=== PATIENT | male | born 1940 | race Caucasian/White ===

== ENCOUNTER 2017-03-19 15:14 | Inpatient (IN) | payer MEDICARE, OTHER ==
[~2017-03-19] VITALS: Ht 175.3 cm; Wt 74.8 kg
--- NOTE | 2017-03-19 15:14 | NUR ---
BIB RA C/O WEAKNESS AND HYPOTENSION FROM HOME. NAD NOTED. PT AAO X4, RR EVEN AND UNLABORED. VSS. PT GIVEN 500CC BOLUS IN FIELD. CURRENT PRESSURE 133/77. PLACED IN GOWN AND MONITOR. PENDING MD FOR EVAL.
--- NOTE | 2017-03-19 15:41 | NUR ---
RAY AT BEDSIDE.
[2017-03-19 15:46] LABS: BASOPHILS % (AUTO) 2.5 % (0.0-2.0); EOSINOPHILS % (AUTO) 0.9 % (0.0-6.0); HEMATOCRIT 21 % (39-51); HEMOGLOBIN 7.4 g/dL (13.5-17.5); LYMPHOCYTES # (AUTO) 0.3 /CMM (0.8-4.8); LYMPHOCYTES % (AUTO) 54.3 % (20.0-44.0); MEAN CORPUSCULAR HEMOGLOBIN 33 PG (26.0-33.0); MEAN CORPUSCULAR HGB CONC 35 g/dl (31.0-36.0); MEAN CORPUSCULAR VOLUME 94 fL (80-96); MONOCYTES % (AUTO) 8.4 % (2.0-12.0); NEUTROPHILS # (AUTO) 0.2 /CMM (1.8-8.9); NEUTROPHILS % (AUTO) 33.9 % (43.0-81.0); PLATELET COUNT (AUTO) 91 /CMM (150-450); RDW COEFFICIENT OF VARIATION 18.6 (11.5-15.0); RED BLOOD CELL COUNT(AUTO) 2.27 MIL/uL (4.5-6.0)
[2017-03-19 15:48] LABS: WHITE BLOOD COUNT (AUTO) 0.5 K/uL (4.3-11.0)
[2017-03-19 15:50] LABS: CALCIUM, SERUM 7.9 mg/dL (8.5-10.1); CARBON DIOXIDE 29 mmol/L (21-32); CHLORIDE 103 mmol/L (98-107); CREATININE 1.2 mg/dL (0.6-1.3); GLUCOSE 131 mg/dL (74-106); POTASSIUM 4.3 mmol/L (3.5-5.1); SODIUM SERUM 138 mmol/L (136-145); UREA NITROGEN, BLOOD 30 mg/dL (7-18)
[2017-03-19 15:56] LABS: ALANINE AMINOTRANSFERASE 25 U/L (12-78); ALBUMIN 2.7 g/dL (3.4-5.0); ALKALINE PHOSPHATASE 52 U/L (46-116); ASPARTATE AMINOTRANSFERASE 20 U/L (15-37); BILIRUBIN,DIRECT 0.2 mg/dL (0.0-0.2); BILIRUBIN,TOTAL 0.8 mg/dL (0.2-1.0); TOTAL PROTEIN, SERUM 5.3 g/dL (6.4-8.2)
[2017-03-19] MEDS ORDERED: IV NS 0.9% 1,000 ML BAG IV ONE (16:00)
[2017-03-19 16:03] LABS: INR 0.93 (0.87-1.13); PROTHROMBIN TIME 9.7 SECS (9.5-12.7)
--- NOTE | 2017-03-19 16:15 | NUR ---
PATIENT WILL BE ADMITTED INTO ROOM 311-2, NURSE ARITA
[2017-03-19 16:28] LABS: APPEARANCE,URINE Clear (CLEAR); BILIRUBIN,URINE Negative (NEGATIVE); BLOOD, URINE Moderate Ery/uL (NEGATIVE); COLOR,URINE Yellow (YELLOW); KETONES,URINE Negative (NEGATIVE); LEUKOCYTE ESTERASE ,URINE Negative (NEGATIVE); NITRITE, URINE Negative (NEGATIVE); PH,URINE 5.5 (5.0-8.0); PROTEIN,URINE 30 mg/dl (NEGATIVE); UGLUCOSE Negative (NEGATIVE)
[2017-03-19 16:31] LABS: BACTERIA,URINE Rare /HPF (None Seen); RBC,URINE 51-80 /HPF (0-2); SQUAMOUS EPITHELIAL CELL,UR Few /HPF (None Seen); WBC,URINE 0-2 /HPF (0-3)
--- NOTE | 2017-03-19 16:42 | NUR ---
REPORT GIVEN TO KIM GROVES FOR YVONNE
--- NOTE | 2017-03-19 17:20 | NUR ---
DYE WORKER ADMITTING NOTES RECEIVED PT VIA CINTIA.ALERT AND ORIENTED X4.VERBALLY RESPONSIVE.ON BEDREST DUE TO WEAKNESS.WITH IV H/L INTACT TO RT AC G 18.WITH GENERALIZED WEAKNESS.BODY CHECK DONE WITH SKIN TEAR ON RFA AND HEALING SCABS ON LEFT ELBOW. PATIENT ABLE TO MOVE BOTH BUE AND BLE. PATIENT HAS TREMORS ON LFT HAND AND SLIGHTLY NOTICED ON THE RIGHT HAND. PATIENT TAKEN DOWN TO CT CERVICAL SPINE AND THORACIC SPINE W/O CONTRAST.
[2017-03-19] MEDS ORDERED: ZOLPIDEM TARTRATE 5 MG TABLET PO PRN (17:30)
[2017-03-19] MEDS ORDERED: HYDROCODONE/APAP 5/325MG 1 EACH TABLET PO PRN (17:30)
[2017-03-19] MEDS ORDERED: Z GUARD REMEDY 2 OZ OINT TP PRN (17:30)
[2017-03-19] MEDS ORDERED: ACETAMINOPHEN 325 MG TABLET PO PRN (17:30)
[2017-03-19] MEDS ORDERED: MAG HYDROX/AL HYDROX/SIMETH 30 ML UDC PO PRN (17:30)
[2017-03-19] MEDS ORDERED: ONDANSETRON HCL/PF 4 MG/2 ML VIAL IVP PRN (17:30)
[2017-03-19] MEDS ORDERED: MORPHINE SULFATE INJ 2 MG/ML DISP.SYRIN IV PRN (17:30)
[2017-03-19] MEDS ORDERED: MAGNESIUM HYDROXIDE 30 ML UDC PO PRN (17:30)
[2017-03-19 18:30] VITALS: BP 120/48
--- NOTE | 2017-03-19 18:30 | NUR ---
PATIENT RETURNED FROM CT SCAN AND IS RESTING COMFORTABLY IN BED. EATING DINNER. CALL LIGHT WITHIN REACH.
--- NOTE | 2017-03-19 19:30 | NUR ---
PT'S ARRIVED AND QUESTIONED PT'S HOME MEDS WHICH IS NOT CLEAR SAYING SHE DOESN'T HAVE PT'S HOME MED LIST WHICH CAN ONLY BE OBTAINED AT [facility]PT REFUSED SINGH CATHETER INSERTION SAYING HE USES URINAL TO VOID.ENDORSED TO NIGHT NURSE CARE.
--- NOTE | 2017-03-19 19:45 | NUR ---
TELE ARCH CUSHION PRESS OPERATOR INITIAL NOTES RECEIVED PT IN BED AWAKE AND ALERT WITH HIS AT THE BEDSIDE. PT AND HIS AWARE THAT PT WILL HAVE BLOOD TRANSFUSION ORDERED. SIGNED THE CONSENT FOR THE PT. DENIES ANY PAIN OR ANY DISCOMFORT . SNACKS ALSO SERVED . TELE SR WITH [facility] HEART 102 PER MONITOR. KEPT HIM WARM AND COMFORTABLE AT ALL TIMES. WILL CONTINUE TO MONITOR. PLACE CALL LIGHT AT REACH.
[2017-03-19 20:00] VITALS: BP 90/52
[2017-03-19 20:00] LABS: FREE PSA 25.77 ng/mL (0.00-45); PROSTATE SPECIFIC ANTIGEN SCR 424.95 ng/mL (0.00-4.00)
[2017-03-19 20:30] LABS: AMYLASE 45 U/L (25-115); LIPASE 64 U/L (73-393)
[2017-03-19 20:47] LABS: CREATINE KINASE MB 0.3 ng/mL (0-3.6)
[2017-03-19] MEDS: TBO-FILGRASTIM 300 MCG/0.5 ML SYRINGE SQ SCH (20:55)
[2017-03-19 21:06] LABS: HEMOGLOBIN 6.8 g/dL (13.5-17.5)
[2017-03-19 22:20] VITALS: BP 90/60
--- NOTE | 2017-03-19 22:20 | NUR ---
DUST MILL OPERATOR/NOTES BLOOD TRANSFUSION STARTED VERIFIED BY ANOTHER NURSE . PT AWAKE AND ALERT , DENIES ANY PAIN OR ANY DISCOMFORT. KEPT HIM WARM AND COMFORTABLE AT ALL TIMES. WILL CONTINUE TO MONITOR. PLACE CALL LIGHT AT REACH.
[2017-03-19 22:35] VITALS: BP 90/50
--- NOTE | 2017-03-19 22:35 | NUR ---
MANAGER OF SELECTION AND ASSESSMENT/NOTES CHECKED PT HE'S RESTING BUT AROUSES TO TOUCH, NO SIGNS OF ANY ACUTE DISTRESS NOTED, DENIES ANY PAIN. HE STATED "I'M OK". KEPT HIM WARM AND COMFORTABLE AT ALL TIMES. PLACE CALL LIGHT AT REACH.
[2017-03-19 23:35] VITALS: BP 90/60
[2017-03-20] VITALS (7 sets, daily range): BP systolic 90–114; BP diastolic 50–61
--- NOTE | 2017-03-20 02:00 | NUR ---
STEWARD/STEWARDESS THIRD CLASS/NOTES TRANSFUSION DONE , NO SIGNS OF ANY ADVERSE REACTION NOTED. BREATHING EVEN AND NON-LABORED . SKIN WARM TO TOUCH, KEPT HIM COMFORTABLE AT ALL TIMES. PT DENIES ANY DISCOMFORT. WILL CONTINUE TO MONITOR. PLACE CALL LIGHT AT REACH.
[2017-03-20] MEDS: PANTOPRAZOLE 40 MG TABLET.DR PO SCH ×2 (06:36→09:50)
--- NOTE | 2017-03-20 07:11 | NUR ---
TELE WIND UP WORKER CLOSING NOTES PT BACK TO REST AFTER MORNING CARE DONE WITH THE HELPED OF FUR GLOSSER. RESPIRATION EVEN AND NON-LABORED, NOT IN ANY ACUTE DISTRESS NOTED. ALL DUE MEDS GIVEN AND STABLE MAHAD THE NIGHT EVEN AFTER BLOOD TRANSFUSION. TELE SINUS TACH 98 PER MONITOR . KEPT HIM WARM AND COMFORTABLE AT ALL TIMES. ENDORSE TO AM NURSE ALVAREZ FOR CONTINUITY OF CARE. PLACE CALL LIGHT AT REACH.
[2017-03-20 07:29] LABS: INR 0.92 (0.87-1.13); PROTHROMBIN TIME 9.8 SECS (9.5-12.7)
[2017-03-20 07:31] LABS: BASOPHILS % (AUTO) 1.1 % (0.0-2.0); EOSINOPHILS % (AUTO) 1.6 % (0.0-6.0); HEMATOCRIT 24 % (39-51); HEMOGLOBIN 8.2 g/dL (13.5-17.5); LYMPHOCYTES # (AUTO) 0.3 /CMM (0.8-4.8); LYMPHOCYTES % (AUTO) 43.8 % (20.0-44.0); MEAN CORPUSCULAR HEMOGLOBIN 31 PG (26.0-33.0); MEAN CORPUSCULAR HGB CONC 34 g/dl (31.0-36.0); MEAN CORPUSCULAR VOLUME 92 fL (80-96); MONOCYTES % (AUTO) 5.3 % (2.0-12.0); NEUTROPHILS # (AUTO) 0.4 /CMM (1.8-8.9); NEUTROPHILS % (AUTO) 48.2 % (43.0-81.0); PLATELET COUNT (AUTO) 90 /CMM (150-450); RDW COEFFICIENT OF VARIATION 20.6 (11.5-15.0); RED BLOOD CELL COUNT(AUTO) 2.62 MIL/uL (4.5-6.0)
[2017-03-20 07:39] LABS: WHITE BLOOD COUNT (AUTO) 0.8 K/uL (4.3-11.0)
[2017-03-20 07:51] LABS: CARBON DIOXIDE 28 mmol/L (21-32); CHLORIDE 105 mmol/L (98-107); GLUCOSE 110 mg/dL (74-106); MAGNESIUM 1.9 mg/dL (1.8-2.4); PHOSPHORUS 2.8 mg/dL (2.5-4.9); POTASSIUM 3.8 mmol/L (3.5-5.1); SODIUM SERUM 141 mmol/L (136-145); UREA NITROGEN, BLOOD 23 mg/dL (7-18)
[2017-03-20 07:56] LABS: CHOLESTEROL 131 mg/dL (<200); HDL CHOLESTEROL 32 mg/dL (40-60); LDL 80 mg/dL (0-99); THYROID STIMULATING HORMONE 1.652 uIU/mL (0.358-3.74); TRIGLYCERIDES 114 mg/dL (30-150)
--- NOTE | 2017-03-20 08:00 | NUR ---
INTENSIVE CARE UNIT REGISTERED NURSE AM NOTES; RECEIVED PATIENT STABLE. A&O X3. NO DISTRESS NOTED. NO PAIN NOTED. NO SOB NOTED. ON ROOM AIR SATING AT 94%. ATE BREAKFAST IN BED. NO N/V NOTED. ON A CARDIAC DIET. VS STABLE. RESTING COMFORTABLY IN BED. CALL LIGHT WITHIN REACH.
[2017-03-20] MEDS: DOCUSATE SODIUM 100 MG CAPSULE PO SCH ×2 (08:48→17:00)
[2017-03-20] MEDS ORDERED: IBUPROFEN 400 MG TABLET PO SCH (10:00)
[2017-03-20] MEDS ORDERED: oxyCODONE IR immediate release 5 MG CAPSULE PO PRN (10:00)
[2017-03-20] MEDS: ACETAMINOPHEN 325 MG TABLET PO SCH ×3 (10:00→21:14)
[2017-03-20] MEDS ORDERED: IBUPROFEN 400 MG TABLET PO PRN (11:25)
[2017-03-20 13:27] LABS: BASOPHILS % (AUTO) 0.6 % (0.0-2.0); EOSINOPHILS % (AUTO) 0.9 % (0.0-6.0); HEMATOCRIT 22 % (39-51); HEMOGLOBIN 7.5 g/dL (13.5-17.5); LYMPHOCYTES # (AUTO) 0.4 /CMM (0.8-4.8); LYMPHOCYTES % (AUTO) 42.6 % (20.0-44.0); MEAN CORPUSCULAR HEMOGLOBIN 32 PG (26.0-33.0); MEAN CORPUSCULAR HGB CONC 35 g/dl (31.0-36.0); MEAN CORPUSCULAR VOLUME 92 fL (80-96); MONOCYTES # (AUTO) 0.1 /CMM (0.1-1.30); MONOCYTES % (AUTO) 6.9 % (2.0-12.0); NEUTROPHILS # (AUTO) 0.5 /CMM (1.8-8.9); PLATELET COUNT (AUTO) 85 /CMM (150-450); RDW COEFFICIENT OF VARIATION 20.6 (11.5-15.0); RED BLOOD CELL COUNT(AUTO) 2.35 MIL/uL (4.5-6.0)
[2017-03-20] MEDS ORDERED: PANTOPRAZOLE 80 MG in IV NS 0.9% 100 ML IV ONE (14:00)
[2017-03-20 14:34] LABS: BAND % (MANUAL) 6 % (0.0-5.0); EOSINOPHILS % (MANUAL) 2 % (0-4); LYMPHOCYTES % (MANUAL) 50 % (16-48); MONOCYTES % (MANUAL) 10 % (0-11.0); MYELOCYTES % 1 % (0-0); NEUTROPHILS % (MANUAL) 31 (42-76)
--- NOTE | 2017-03-20 15:37 | NUR ---
PT REFUSED P.T. TREATMENT
--- NOTE | 2017-03-20 16:38 | NUR ---
1420: ADMINISTERED PROTONIX IV RUNNING AT 50ML/HR STARTED AT 1420. FORGOT TO SCAN BAG.
--- NOTE | 2017-03-20 17:40 | NUR ---
CONSTRUCTION SKILLS TEACHER CLOSING NOTES: PATIENT A&0X3. PATIENT NPO. PROTONIX NS 0.9% RUNNING AT 50ML/HR ON RIGHT ACS SITE. SITE CLEAR/ PATENT/ NO REDNESS/ NO INFILTRATION NOTED. NO DISTRESS NOTED. NO SOB NOTED. NO N/V NOTED.NO PAIN NOTED. RESTING COMFORTABLY IN BED. CALL LIGHT WITHIN REACH.
--- NOTE | 2017-03-20 19:00 | NUR ---
GUEST RELATIONS MANAGER NOTES RECEIVED PT IN BED, A/O X3, NOT IN ACUTE DISTRESS, IV SITE INTACT NO S/S OF INFILTRATION. CALL LIGHT WITHIN REACH. SAFETY MEASURES IN PLACE, ON LOW BED, WILL CONTINUE TO MONITOR PT.
[2017-03-20] MEDS: TBO-FILGRASTIM 300 MCG/0.5 ML SYRINGE SQ SCH (21:11)
[2017-03-21] VITALS (12 sets, daily range): BP systolic 90–129; BP diastolic 50–74
[2017-03-21] MEDS: PANTOPRAZOLE 80 MG in IV NS 0.9% 500 ML IV PRN ×2 (01:45→13:54)
[2017-03-21] MEDS: ACETAMINOPHEN 325 MG TABLET PO SCH ×4 (04:00→21:00)
--- NOTE | 2017-03-21 05:20 | NUR ---
PAGED VOCATIONAL NURSING INSTRUCTOR MD SPOKE TO DR. NICHOL SANCHEZ ORDERED PATIENT TO HAVE D5 NS AT 75 CC/HR IV HYDRATION NOTED AND CARRIED OUT
[2017-03-21] MEDS: IV D5/ 0.9% NACL 1,000 ML IV PRN (05:27)
--- NOTE | 2017-03-21 06:35 | NUR ---
MS RN NOTES PATIENT COMFORTABLY ASLEEP AND EASILY AWAKEN, A/O X 3, HEAD OF BED ELEVATED FOR BETTER LUNG EXPANSION. TOLERATING ROOM AIR 02 SAT 98%, IV SITE NO S/S OF INFILTRATED PATENT AND FLUSHED, NOT IN ACUTE DISTRESS. RESPIRATIONS EVEN AND UNLABORED, NURSING CARE RENDERED, NEEDS ATTENDED AND ANTICIPATED, KEPT CLEAN AND DRY AND COMFORTABLE, GOOD SKIN CARE PROVIDED. FREQUENT VISUAL CHECK DONE FOR SAFETY EVERY 2 HOURS. ASSISTED REPOSITIONED EVERY 2 HOURS FOR SKIN MGT, NO COMPLAINS OF CHEST PAIN THROUGHOUT THE 12 HOUR SHIFT. SAFE HAZARD FREE ENVIRONMENT PROVIDED. CALL LIGHT WITHIN EASY TO REACH, ON LOW BED AT ALL TIMES TO ENSURE SAFETY, WILL ENDORSE TO THE NEXT SHIFT CONTINUE PLAN OF CARE.
[2017-03-21 06:38] LABS: BASOPHILS % (AUTO) 0.3 % (0.0-2.0); EOSINOPHILS % (AUTO) 0.6 % (0.0-6.0); HEMATOCRIT 21 % (39-51); HEMOGLOBIN 7.4 g/dL (13.5-17.5); LYMPHOCYTES # (AUTO) 0.6 /CMM (0.8-4.8); LYMPHOCYTES % (AUTO) 29.8 % (20.0-44.0); MEAN CORPUSCULAR HEMOGLOBIN 32 PG (26.0-33.0); MEAN CORPUSCULAR HGB CONC 35 g/dl (31.0-36.0); MEAN CORPUSCULAR VOLUME 92 fL (80-96); MONOCYTES # (AUTO) 0.1 /CMM (0.1-1.30); NEUTROPHILS # (AUTO) 1.4 /CMM (1.8-8.9); NEUTROPHILS % (AUTO) 65.3 % (43.0-81.0); PLATELET COUNT (AUTO) 90 /CMM (150-450); RDW COEFFICIENT OF VARIATION 20.1 (11.5-15.0); RED BLOOD CELL COUNT(AUTO) 2.31 MIL/uL (4.5-6.0); WHITE BLOOD COUNT (AUTO) 2.1 K/uL (4.3-11.0)
[2017-03-21 07:52] LABS: CALCIUM, SERUM 7.7 mg/dL (8.5-10.1); CARBON DIOXIDE 27 mmol/L (21-32); CHLORIDE 103 mmol/L (98-107); CREATININE 1.2 mg/dL (0.6-1.3); GLUCOSE 93 mg/dL (74-106); MAGNESIUM 1.7 mg/dL (1.8-2.4); PHOSPHORUS 2.7 mg/dL (2.5-4.9); POTASSIUM 3.7 mmol/L (3.5-5.1); SODIUM SERUM 137 mmol/L (136-145); UREA NITROGEN, BLOOD 16 mg/dL (7-18)
--- NOTE | 2017-03-21 08:00 | NUR ---
RN AM MED SURGE NOTES: RECEIVED RESIDENT A&OX3. PT NPO. INFUSING PROTONIX NS 50CC/HR, D5 NS RUNNING AT 75ML/HR. MIDLINE SITE CLEAR. NO REDNESS. NO PAIN NOTED. NO DISTRESS. NO SOB NOTED. RESTING COMFORTABLY IN BED. CALL LIGHT WITHIN REACH.
[2017-03-21 08:18] LABS: CREATINE KINASE, TOTAL 94 U/L (39-308)
[2017-03-21 08:58] LABS: BAND % (MANUAL) 15 % (0.0-5.0); LYMPHOCYTES % (MANUAL) 22 % (16-48); MONOCYTES % (MANUAL) 6 % (0-11.0); NEUTROPHILS % (MANUAL) 57 (42-76)
[2017-03-21] MEDS: DOCUSATE SODIUM 100 MG CAPSULE PO SCH ×2 (09:00→16:07)
--- NOTE | 2017-03-21 09:45 | NUR ---
SEEN BY P.T. AND PT REFUSED FOR 2 DAYS INSPITE OF EXPLAINING IT'S RISKS AND BENEFITS.
[2017-03-21] MEDS ORDERED: Magnesium 1GM/D5W 100ML PREMIX 100 ML IV SCH (10:00)
[2017-03-21] MEDS: Magnesium 1GM/D5W 100ML PREMIX 100 ML IV SCH ×2 (10:46→12:11)
--- NOTE | 2017-03-21 13:00 | NUR ---
STARTED TRANSFUSING FIRST UNIT PRBC WITH STABLE V/S.AFEBRILE.PT IS COMFORTABLY SLEEPING BUT AROUSABLE.WILL MONITOR FOR ANY ADVERSE REACTIONS.
--- NOTE | 2017-03-21 14:05 | NUR ---
WITH ONGOING FIRST UNIT PRBC TRANSFUSING WELL WITH NO A/R NOTED.STABEL V/S.PT AFEBRILE.COMFORTABLE SLEEPING BUT AROUSABLE.
--- NOTE | 2017-03-21 15:33 | NUR ---
[place] [facility] NOTES CALLED [place] [facility] EXT 36021 THIRD TIME TO FOLLOW UP PT'S MEDICAL RECORDS AND SPOKE TO TONI OF [facility] WHO STATED THAT THE PT HAS HUGE VOLUME OF MEDICAL RECORDS THAT THEY WILL JUST PUT ALL THE PT'S INFO IN A DISC AND SENT IT THRU MAIL TOMORROW.
--- NOTE | 2017-03-21 16:31 | NUR ---
COMPLETED TRANSFUSING FIRST UNIT PRBC.WITH STABLE V/S AND NO A/R NOTED.WILL HOOK 2ND BAG PRBC.
--- NOTE | 2017-03-21 16:36 | NUR ---
STARTED TRANSFUSING 2ND UNIT PRBC.V/S STABLE AND PT DENIES ANY PAIN OR DISTRESS.AFEBRILE.WILL MONITOR FOR ANY ADVERSE REACTIONS.
--- NOTE | 2017-03-21 16:45 | NUR ---
TRANSFUSING 2ND UNIT PRBC WITH STABLE V/S AND NO ADVERSE REACTIONS NOTED.AFEBRILE.WILL CONTINUE TO MONITOR.
--- NOTE | 2017-03-21 17:49 | NUR ---
RN MED SURGE NOTE: PT A&OX3. NO DISTRESS NOTED. NO PAIN NOTED. NO SOB NOTED. ON 2L NC SAT AT 94%. RESIDENT NPO. CONNECTED TO IV HYDRATION D5NC RUNNING AT 75ML/HR. INFUSION HELD DUE TO NEW ORDER TO INFUSE 2 UNITS OF BLOOD PER MD ORDER. PROTONIX/ NS RUNNING AT 50ML/HR CONNECTED AND INFUSING. NO ADVERSE REACTIONS NOTED. VS STABLE. NO CHANGES IN CONDITIONS. RESTING COMFORTABLY IN BED. CALL LIGHT WITHIN REACH.
--- NOTE | 2017-03-21 19:00 | NUR ---
PRODUCTION TESTER NOTES RECEIVED PT IN BED, A/O X3, BLOOD TRANSFUSION ONGOING FROM DAY SHIFT. NOT IN ACUTE DISTRESS, IV SITE INTACT NO S/S OF INFILTRATION. CALL LIGHT WITHIN REACH. SAFETY MEASURES IN PLACE, ON LOW BED, WILL CONTINUE TO MONITOR PT.
--- NOTE | 2017-03-21 19:48 | NUR ---
S/P BLOOD TRANSFUSION WITH NO A/R NOTED, NO HIVES NO ITCHING NO OVERLOAD VS STABLE, NO FEVER, WILL CONTINUE TO MONITOR PATIENT
[2017-03-21] MEDS: TBO-FILGRASTIM 300 MCG/0.5 ML SYRINGE SQ SCH (21:00)
[2017-03-22] MEDS: PANTOPRAZOLE 80 MG in IV NS 0.9% 500 ML IV PRN (00:27)
[2017-03-22] MEDS: IV D5/ 0.9% NACL 1,000 ML IV PRN (00:28)
[2017-03-22] MEDS: ACETAMINOPHEN 325 MG TABLET PO SCH ×4 (04:00→21:46)
--- NOTE | 2017-03-22 06:32 | NUR ---
MS RN NOTES PATIENT COMFORTABLY ASLEEP AND EASILY AWAKEN, A/O X 4, HEAD OF BED ELEVATED FOR BETTER LUNG EXPANSION. ON 2 LPM VIA NC 02 SAT AT 97%, IV FLUIDS D5NS RUNNING AT 75CC/HR TOLERATED WELL. IV SITE NO S/S OF INFILTRATED PATENT AND FLUSHED, PROTONIX AT NS 50 CC/ HR ONGOING, NOT IN ACUTE DISTRESS. RESPIRATIONS EVEN AND UNLABORED, FREQUENT VISUAL CHECK DONE FOR SAFETY EVERY 2 HOURS. NO COMPLAINS OF CHEST PAIN THROUGHOUT THE 12 HOUR SHIFT. ASSISTED REPOSITIONED EVERY 2 HOURS FOR COMFORT AND SKIN MGT. NURSING CARE RENDERED, NEEDS ATTENDED AND ANTICIPATED, KEPT CLEAN AND DRY AND COMFORTABLE, GOOD SKIN CARE PROVIDED. MAINTAINS NPO AT MIDNIGHT, S/P BLOOD TRANSFUSION NO A/R NOTED. SAFE HAZARD FREE ENVIRONMENT PROVIDED. CALL LIGHT WITHIN EASY TO REACH, ON LOW BED AT ALL TIMES TO ENSURE SAFETY, WILL ENDORSE TO THE NEXT SHIFT CONTINUE PLAN OF CARE.
[2017-03-22 06:51] LABS: BASOPHILS % (AUTO) 0.2 % (0.0-2.0); EOSINOPHILS % (AUTO) 0.6 % (0.0-6.0); HEMATOCRIT 27 % (39-51); HEMOGLOBIN 9.4 g/dL (13.5-17.5); LYMPHOCYTES # (AUTO) 0.5 /CMM (0.8-4.8); LYMPHOCYTES % (AUTO) 11.7 % (20.0-44.0); MEAN CORPUSCULAR HEMOGLOBIN 32 PG (26.0-33.0); MEAN CORPUSCULAR HGB CONC 35 g/dl (31.0-36.0); MEAN CORPUSCULAR VOLUME 92 fL (80-96); MONOCYTES # (AUTO) 0.1 /CMM (0.1-1.30); MONOCYTES % (AUTO) 1.5 % (2.0-12.0); NEUTROPHILS # (AUTO) 3.6 /CMM (1.8-8.9); PLATELET COUNT (AUTO) 104 /CMM (150-450); RDW COEFFICIENT OF VARIATION 18.2 (11.5-15.0); RED BLOOD CELL COUNT(AUTO) 2.96 MIL/uL (4.5-6.0); WHITE BLOOD COUNT (AUTO) 4.2 K/uL (4.3-11.0)
[2017-03-22 06:57] LABS: CALCIUM, SERUM 7.1 mg/dL (8.5-10.1); CARBON DIOXIDE 26 mmol/L (21-32); CHLORIDE 105 mmol/L (98-107); GLUCOSE 115 mg/dL (74-106); PHOSPHORUS 1.8 mg/dL (2.5-4.9); POTASSIUM 3.6 mmol/L (3.5-5.1); SODIUM SERUM 140 mmol/L (136-145); UREA NITROGEN, BLOOD 10 mg/dL (7-18)
[2017-03-22] MEDS: PANTOPRAZOLE 40 MG TABLET.DR PO SCH ×2 (07:30→16:25)
--- NOTE | 2017-03-22 07:30 | NUR ---
m/s cement mason helper: initial assessment received pt in bed awake, a/ox3. pt remains npo, for egd this morning. continue on ivf and protonix drip as ordered. no c/o n/v/d or abdominal discomfort. instructed to call for assistance. will continue to monitor.
[2017-03-22 08:00] VITALS: BP 106/53
[2017-03-22] MEDS: DOCUSATE SODIUM 100 MG CAPSULE PO SCH ×2 (08:24→16:29)
[2017-03-22 08:46] LABS: BAND % (MANUAL) 10 % (0.0-5.0); LYMPHOCYTES % (MANUAL) 9 % (16-48); MONOCYTES % (MANUAL) 7 % (0-11.0); NEUTROPHILS % (MANUAL) 74 (42-76)
--- NOTE | 2017-03-22 10:20 | NUR ---
m/s motor brakeman: notes son and at bedside and updated plan of care. pt remains npo and for egd at 1100. pt still addressing his back problem and informed him dr. guillen (neurosurgeon) was consulted by hospitalist.
--- NOTE | 2017-03-22 10:55 | NUR ---
m/s confidential investigator: notes pt picked up by o.r. nurse via bed accompanied by family. pt scheduled for egd.
--- NOTE | 2017-03-22 11:38 | NUR ---
m/s fruit loader machine operator: notes new orders received from dr. hebert. orders acknowledged.
[2017-03-22] MEDS ORDERED: POTASSIUM PHOSPHATE MM 15 MMOL in IV D5W 250 ML IV SCH (12:00)
[2017-03-22 13:00] VITALS: BP 106/62
[2017-03-22] MEDS ORDERED: Sodium Phosphate 15 MMOL in IV D5W 250 ML IV ONE (13:00)
--- NOTE | 2017-03-22 13:00 | NUR ---
m/s cocoa room operator: notes received pt from recovery room with dx: s/p egd with findings of esophageal ulcer. new orders received and carried out and noted. order faxed to pharmacy by recovery nurse. vss. call light within reach. will continue to monitor.
[2017-03-22] MEDS ORDERED: ANESTHESIA TRAY IN PYXIS 1 EA TRAY MC ONE (13:53)
--- NOTE | 2017-03-22 14:00 | NUR ---
m/s regional engineer: notes pt tolerated clear liquid diet. no c/o n/v or any abdominal discomfort. family remains at bedside. will monitor.
--- NOTE | 2017-03-22 15:00 | NUR ---
m/s filing clerk: notes pudding provided and katy. well. no c/o n/v or abdominal discomfort. diet advance to soft for dinner. family and pt aware. instructed to call for assistance. will monitor.
[2017-03-22 15:39] VITALS: BP 122/66
[2017-03-22] MEDS: POTASSIUM PHOSPHATE MM 7.5 MMOL in IV D5W 100 ML IV SCH ×2 (17:36→21:45)
--- NOTE | 2017-03-22 18:00 | NUR ---
m/s solutions delivery consultant: notes pt just had an ensure for dinner that was brought from home, pt refused to eat at this time, but tried a little bit of soup. family remains at bedside. call light within reach. will continue to monitor.
--- NOTE | 2017-03-22 19:30 | NUR ---
m/s car unloader helper: notes report given to cyn (rn) for continuity of care. son remains at bedside. will monitor.
--- NOTE | 2017-03-22 19:40 | NUR ---
RN OPENING NOTES RECEIVED REPORT FROM WILD JOINER. FOUND Pt AWAKE, RESTING IN BED. FAMILY VISITING AT BEDSIDE. NO S/S OF ACUTE DISTRESS OR SOB NOTED. EGD DONE TODAY. NOW ON A SOFT DIET, CAN ADVANCE DIET TOLERATED. IV ACCESS ON GURJIT MIDLINE, IVF D5NS @7ML/HR & LFA #22G. ON KPHOS IV, WILL HANG 2ND BAG WHEN 1ST BAG IS DONE. SAFETY MEASURES IN PLACE. BED LOW, LOCKED, HOB ELEVATED, SIDE RAILS UP, CALL LIGHT AND BEDSIDE TABLE WITHIN REACH. WILL CONTINUE TO MONITOR Pt THROUGHOUT THE NIGHT.
[2017-03-22 20:00] VITALS: BP 110/60
[2017-03-22] MEDS: TBO-FILGRASTIM 300 MCG/0.5 ML SYRINGE SQ SCH (21:45)
[2017-03-23] MEDS: IV D5/ 0.9% NACL 1,000 ML IV PRN ×2 (03:56→18:28)
[2017-03-23] MEDS: ACETAMINOPHEN 325 MG TABLET PO SCH ×4 (03:57→21:32)
--- NOTE | 2017-03-23 04:00 | NUR ---
RN NOTES Pt REFUSED TO TAKE TYLENOL SCHEDULED FOR 0400.
[2017-03-23 06:22] LABS: BASOPHILS % (AUTO) 0.1 % (0.0-2.0); EOSINOPHILS % (AUTO) 0.6 % (0.0-6.0); HEMATOCRIT 29 % (39-51); LYMPHOCYTES # (AUTO) 0.5 /CMM (0.8-4.8); LYMPHOCYTES % (AUTO) 6.8 % (20.0-44.0); MEAN CORPUSCULAR HEMOGLOBIN 32 PG (26.0-33.0); MEAN CORPUSCULAR HGB CONC 35 g/dl (31.0-36.0); MEAN CORPUSCULAR VOLUME 92 fL (80-96); MONOCYTES % (AUTO) 0.5 % (2.0-12.0); NEUTROPHILS # (AUTO) 7.2 /CMM (1.8-8.9); PLATELET COUNT (AUTO) 112 /CMM (150-450); RDW COEFFICIENT OF VARIATION 18.5 (11.5-15.0); RED BLOOD CELL COUNT(AUTO) 3.14 MIL/uL (4.5-6.0); WHITE BLOOD COUNT (AUTO) 7.8 K/uL (4.3-11.0)
[2017-03-23 06:41] LABS: CALCIUM, SERUM 7.3 mg/dL (8.5-10.1); CARBON DIOXIDE 27 mmol/L (21-32); CHLORIDE 105 mmol/L (98-107); GLUCOSE 113 mg/dL (74-106); PHOSPHORUS 2.4 mg/dL (2.5-4.9); POTASSIUM 3.4 mmol/L (3.5-5.1); SODIUM SERUM 140 mmol/L (136-145); UREA NITROGEN, BLOOD 8 mg/dL (7-18)
--- NOTE | 2017-03-23 06:51 | NUR ---
RN CLOSING NOTES NO SIGNIFICANT CHANGES IN Pt's CONDITION. NO S/S OF ACUTE DISTRESS OR SOB NOTED DURING THE NIGHT. ALL NEEDS MET AND ATTENDED TO. SAFETY MEASURES IN PLACE. WILL ENDORSE TO DAYSHIFT RN FOR Pt's YVONNE.
[2017-03-23 07:05] LABS: BAND % (MANUAL) 9 % (0.0-5.0); LYMPHOCYTES % (MANUAL) 5 % (16-48); METAMYELOCYTES % 2 % (0-0); MONOCYTES % (MANUAL) 6 % (0-11.0); NEUTROPHILS % (MANUAL) 78 (42-76)
--- NOTE | 2017-03-23 07:30 | NUR ---
RN OPENING NOTES RECEIVED PT. IN BED A&OX3. NO SOB, BREATHING UNLABORED ON OXYGEN 2L/MIN WITH NASAL CANNULA. NO S/S OF ACUTE DISTRESS. IV FLUIDS RUNNING AT 75 ML/HR. URINAL NEAR BEDSIDE. BED IS IN LOW POSITION, 2 SIDE RAILS UP, AND CALL LIGHT WITHIN REACH. ALL NEEDS MET AT THIS TIME.
[2017-03-23] MEDS: PANTOPRAZOLE 40 MG TABLET.DR PO SCH ×2 (07:58→16:39)
[2017-03-23 08:00] VITALS: BP 108/59
[2017-03-23] MEDS: DOCUSATE SODIUM 100 MG CAPSULE PO SCH ×2 (08:48→16:39)
[2017-03-23] MEDS ORDERED: POTASSIUM CHLORIDE 20 MEQ TAB.PRT.SR PO ONE (09:30)
[2017-03-23] MEDS ORDERED: POTASSIUM PHOSPHATE MM 15 MMOL in IV D5W 250 ML IV SCH (10:30)
[2017-03-23] MEDS: POTASSIUM PHOSPHATE MM 7.5 MMOL in IV D5W 100 ML IV SCH ×2 (12:51→15:32)
[2017-03-23 16:00] VITALS: BP 102/60
--- NOTE | 2017-03-23 19:18 | NUR ---
RN CLOSING NOTES PT. IN BED SLEEPING, EASILY WAKE UP, A&OX3. NO SOB, BREATHING UNLABORED ON OXYGEN 2L/MIN WITH NASAL CANNULA. NO S/S OF ACUTE DISTRESS. IV FLUIDS RUNNING AT 75 ML/HR, AND POTASSIUM 34.17 ML/HR. URINAL NEAR BEDSIDE. BED IS IN LOW POSITION, 2 SIDE RAILS UP, AND CALL LIGHT WITHIN REACH. ALL NEEDS MET AT THIS TIME.
--- NOTE | 2017-03-23 19:30 | NUR ---
MS/RN OPENING NOTES PT AWAKE, FAMILY AT BEDSIDE. ON 2LPM O2 VIA NC, BREATHING EVEN AND UNLABORED. A/OX3. SOME WHEEZING NOTED BUT PT DENIES SOB OR ANY DISTRESS. IV TO LFA PATENT AND INTACT. GURJIT MIDLINE RUNNING IVF ORDERED. PT FOR STOOL COLLECTION. BED IN LOW/LOCKED POSITION WITH CALL LIGHT IN REACH. SIDE RAILS UPX2. WILL CONTINUE TO MONITOR
[2017-03-23 20:00] VITALS: BP 103/63
--- NOTE | 2017-03-23 21:00 | NUR ---
MS/RN NOTES NOTIFIED NICHOL SANCHEZ ABOUT PT'S OCCASIONAL WHEEZING. DOES NOT WANT TO ORDER PRN BREATHING TX.
[2017-03-23] MEDS: TBO-FILGRASTIM 300 MCG/0.5 ML SYRINGE SQ SCH (21:32)
[2017-03-24] MEDS: ACETAMINOPHEN 325 MG TABLET PO SCH ×4 (05:45→21:50)
[2017-03-24 07:00] LABS: EOSINOPHILS % (AUTO) 0.2 % (0.0-6.0); HEMATOCRIT 27 % (39-51); HEMOGLOBIN 9.6 g/dL (13.5-17.5); LYMPHOCYTES # (AUTO) 0.5 /CMM (0.8-4.8); LYMPHOCYTES % (AUTO) 4.1 % (20.0-44.0); MEAN CORPUSCULAR HEMOGLOBIN 32 PG (26.0-33.0); MEAN CORPUSCULAR HGB CONC 35 g/dl (31.0-36.0); MEAN CORPUSCULAR VOLUME 92 fL (80-96); MONOCYTES # (AUTO) 0.2 /CMM (0.1-1.30); MONOCYTES % (AUTO) 1.9 % (2.0-12.0); NEUTROPHILS # (AUTO) 10.3 /CMM (1.8-8.9); NEUTROPHILS % (AUTO) 93.8 % (43.0-81.0); PLATELET COUNT (AUTO) 121 /CMM (150-450); RDW COEFFICIENT OF VARIATION 18.8 (11.5-15.0); RED BLOOD CELL COUNT(AUTO) 2.98 MIL/uL (4.5-6.0); WHITE BLOOD COUNT (AUTO) 10.9 K/uL (4.3-11.0)
--- NOTE | 2017-03-24 07:20 | NUR ---
MS/RN CLOSING NOTES PT ASLEEP, EASILY AROUSABLE TO NAME. A/OX3. ON 3LPM O2 VIA NC, BREATHING EVEN BUT SLIGHTLY LABORED WITH OCCASIONAL WHEEZING NOTED. PT DENIES SOB AND "FEELS OKAY". NO COMPLAINTS OF PAIN. IV TO LEFT WRIST PATENT AND INTACT AND GURJIT MIDLINE PATENT AND INTACT. MADE PT COMFORTABLE THROUGHOUT SHIFT. ENDORSED TO DAY SHIFT ORDER FOR [facility] BRACE, [place] [facility] RECORDS AND CONSENT FOR MRI. BED IN LOW/LOCKED POSITION, CALL LIGHT IN REACH. SIDE RAILS UPX2. ENDORSED FOR YVONNE.
[2017-03-24 07:42] LABS: CALCIUM, SERUM 7.2 mg/dL (8.5-10.1); CARBON DIOXIDE 26 mmol/L (21-32); CHLORIDE 106 mmol/L (98-107); GLUCOSE 115 mg/dL (74-106); MAGNESIUM 1.7 mg/dL (1.8-2.4); PHOSPHORUS 1.8 mg/dL (2.5-4.9); POTASSIUM 3.4 mmol/L (3.5-5.1); SODIUM SERUM 140 mmol/L (136-145); UREA NITROGEN, BLOOD 9 mg/dL (7-18)
[2017-03-24 08:00] VITALS: BP 103/59
--- NOTE | 2017-03-24 08:05 | NUR ---
MS RN OPENING NOTE PATIENT IS ALERT AND ORIENTED x3. NO PAIN AT THIS TIME. NO SOB OR DISTRESS NOTED. CALL LIGHT WITHIN REACH. SAFETY MEASURES IMPLEMENTED. ABLE TO COMMUNICATE NEEDS. IV INTACT AND PATENT NO REDNESS OR SWELLING NOTED, GURJIT MIDLINE INTACT AND PATENT NO REDNESS OR SWELLING NOTED. ON 2L/MIN OF OXYGEN VIA NASAL CANNULA, TOLERATING WELL. ENDORSED THAT WE ARE STILL WAITING TO RECEIVE MEDICAL RECORDS OF PATIENT FROM [facility] ON ITS WAY UNKNOWN WHEN WE WILL RECEIVE. AWAITING BRACE TO COME IN FOR PATIENT WELL DENISSE ROBERTSON AWARE. WILL CONTINUE TO MONITOR
[2017-03-24] MEDS: DOCUSATE SODIUM 100 MG CAPSULE PO SCH ×2 (08:36→16:25)
[2017-03-24] MEDS: PANTOPRAZOLE 40 MG TABLET.DR PO SCH ×2 (08:36→16:26)
[2017-03-24] MEDS ORDERED: POTASSIUM CHLORIDE 20 MEQ TAB.PRT.SR PO ONE (09:30)
[2017-03-24] MEDS: Magnesium 1GM/D5W 100ML PREMIX 100 ML IV SCH ×2 (09:51→10:53)
[2017-03-24] MEDS ORDERED: Magnesium 1GM/D5W 100ML PREMIX 100 ML IV SCH (10:00)
--- NOTE | 2017-03-24 10:00 | NUR ---
MS RN NOTE CHANGED PATIENT'S MIDLINE DRESSING. ASKED GERMAIN LEMUS FOR ASSISTANCE. MIDLINE IS CLEAN, DRY AND INTACT AND PATENT. NO REDNESS OR SWELLING NOTED. WILL ENDORSE TO SHIP/REC/DOC CONTROL NURSE
[2017-03-24] MEDS: Potassium Phosphate meq 11 MEQ in IV D5W 100 ML IV SCH ×2 (10:53→14:22)
--- NOTE | 2017-03-24 15:13 | NUR ---
TEXTED DR. STEEL FOR MRI APPROVAL.
[2017-03-24 16:00] VITALS: BP 106/59
[2017-03-24] MEDS: GUAIFENESIN 300 MG/15 ML UDC PO PRN (16:26)
[2017-03-24] MEDS: ALBUTEROL HALF STRENGTH 1.25 MG/3 ML VIAL.NEB NEB PRN ×2 (17:30→20:31)
--- NOTE | 2017-03-24 18:53 | NUR ---
MS RN CLOSING NOTE PATIENT IS ALERT AND ORIENTED x2. NO PAIN AT THIS TIME. NO SOB OR DISTRESS NOTED. CALL LIGHT WITHIN REACH AT ALL TIMES. SAFETY MEASURES IMPLEMENTED. IV INTACT AND PATENT NO REDNESS OR SWELLING NOTED. MIDLINE INTACT AND PATENT, DRESSING CHANGE DONE EARLIER THIS MORNING. ALL DUE MEDICATIONS GIVEN ORDERED. ABLE TO COMMUNICATE NEEDS. PATIENT'S FAMILY REFUSING MRI OF SPINE STILL. AWAITING DISC FROM [facility] AND AWAITING FOR BRACE FOR PATIENT TO WEAR OUT OF BED. BREATHING TREATMENT ORDERED. STOOL SAMPLE TO BE COLLECTED. WILL ENDORSE TO WAREHOUSE RECEIVER NURSE
[2017-03-24] MEDS ORDERED: IPRATROPIUM NEB FS 0.5 MG/2.5 ML AMPUL.NEB NEB PRN (19:30)
[2017-03-24] MEDS ORDERED: ALBUTEROL FS 2.5 MG/0.5 ML VIAL.NEB NEB ONE (19:30)
--- NOTE | 2017-03-24 19:30 | NUR ---
MS/RN OPENING NOTES PT AWAKE, A/OX3. ON 2LPM O2 VIA NC, BREATHING EVEN AND SLIGHTLY LABORED. ENDORSED TO ME THAT WHEEZING HAS BECOME WORSE SINCE AM AND PRN BREATHING TX'S ORDERED. DENIES SOB, AND NO S/S OF DISTRESS NOTED. DENIES PAIN. IV TO LEFT FA AND GURJIT MIDLINE PATENT AND INTACT. [facility] AND [facility] TO BE WORN OOB. FAMILY STILL REFUSING MRI AT THIS TIME. BED IN LOW/LOCKED POSITION, CALL LIGHT IN REACH. SIDE RAILS UPX2. WILL CONTINUE TO MONITOR
[2017-03-24 20:00] VITALS: BP 97/53
[2017-03-24 21:11] VITALS: BP 97/53
[2017-03-25] MEDS: ACETAMINOPHEN 325 MG TABLET PO SCH ×4 (04:20→21:54)
[2017-03-25] MEDS: IV D5/ 0.9% NACL 1,000 ML IV PRN ×2 (06:22→21:54)
--- NOTE | 2017-03-25 06:52 | NUR ---
MS/RN CLOSING NOTES PT ASLEEP, EASILY AROUSABLE TO NAME. REMAINS ON 2LPM O2 VIA NC, BREATHING EVEN AND SLIGHTLY LABORED, HOWEVER DENIES SOB AT THIS TIME. NO S/S OF DISTRESS. NO WHEEZING NOTED AT THIS TIME. IV TO LFA AND GURJIT MIDLINE PATENT AND INTACT, IVF RUNNING ORDERED. STILL AWAITING [place] MEDICAL RECORDS VIA DISK AND [facility]. WILL ENDORSE TO AM SHIFT TO FOLLOW UP. MADE PT COMFORTABLE THROUGHOUT SHIFT. ALL NEEDS MET AND ATTENDED. BED IN LOW/LOCKED POSITION, CALL LIGHT IN REACH. SIDE RAILS UPX2 AND EXTREMITIES OFFLOADED. WILL ENDORSE TO AM SHIFT YVONNE.
[2017-03-25 07:08] LABS: BASOPHILS % (AUTO) 0.1 % (0.0-2.0); EOSINOPHILS # (AUTO) 0.1 /CMM (0.0-0.7); EOSINOPHILS % (AUTO) 0.8 % (0.0-6.0); HEMATOCRIT 26 % (39-51); HEMOGLOBIN 8.8 g/dL (13.5-17.5); LYMPHOCYTES # (AUTO) 0.4 /CMM (0.8-4.8); LYMPHOCYTES % (AUTO) 5.1 % (20.0-44.0); MEAN CORPUSCULAR HEMOGLOBIN 31 PG (26.0-33.0); MEAN CORPUSCULAR HGB CONC 34 g/dl (31.0-36.0); MEAN CORPUSCULAR VOLUME 93 fL (80-96); MONOCYTES # (AUTO) 0.2 /CMM (0.1-1.30); MONOCYTES % (AUTO) 2.3 % (2.0-12.0); NEUTROPHILS # (AUTO) 7.7 /CMM (1.8-8.9); NEUTROPHILS % (AUTO) 91.7 % (43.0-81.0); PLATELET COUNT (AUTO) 133 /CMM (150-450); RDW COEFFICIENT OF VARIATION 19.1 (11.5-15.0); WHITE BLOOD COUNT (AUTO) 8.4 K/uL (4.3-11.0)
[2017-03-25 07:29] LABS: CALCIUM, SERUM 7.5 mg/dL (8.5-10.1); CARBON DIOXIDE 28 mmol/L (21-32); CHLORIDE 104 mmol/L (98-107); CREATININE 0.9 mg/dL (0.6-1.3); GLUCOSE 108 mg/dL (74-106); MAGNESIUM 1.9 mg/dL (1.8-2.4); PHOSPHORUS 2.4 mg/dL (2.5-4.9); POTASSIUM 3.9 mmol/L (3.5-5.1); SODIUM SERUM 139 mmol/L (136-145); UREA NITROGEN, BLOOD 10 mg/dL (7-18)
[2017-03-25 08:00] VITALS: BP 108/52
--- NOTE | 2017-03-25 08:00 | NUR ---
AM RN NOTES RECEIVED PT IN BED, RESTING COMFORTABLY NO SOB OR DISTRESS NOTED, NO PAIN OR DISCOMFORT, WILL MONITOR.
[2017-03-25] MEDS: PANTOPRAZOLE 40 MG TABLET.DR PO SCH ×2 (09:17→16:18)
[2017-03-25] MEDS: DOCUSATE SODIUM 100 MG CAPSULE PO SCH ×2 (09:17→16:18)
[2017-03-25] MEDS ORDERED: NEUTRA PHOS 1 POWD.PACKET PO ONE (11:00)
--- NOTE | 2017-03-25 15:45 | NUR ---
TATIANNA ERWIN ORDERED FROM [facility], ORDER FAXED AND WILL F/U.
[2017-03-25 16:00] VITALS: BP 105/65
--- NOTE | 2017-03-25 18:47 | NUR ---
[facility] BRACE DELIVERED, PT INFORMED AND PLACED IN ROOM, PT IN STABLE CONDITION, WILL INDORSE TO NEXT SHIFT FOR YVONNE.
--- NOTE | 2017-03-25 19:30 | NUR ---
MS RN NOTE: PATIENT RESTING IN BED, NO ACUTE DISTRESS NOTED. BREATHING EVEN AND UNLABORED, NO SOB NOTED. IV TO LFA IN PLACE, MIDLINE TO GURJIT IN PLACE INFUSING D5NS AT 75 ML/HR. BED LOCKED AND IN LOWEST POSITION, CALL LIGHT IN REACH. WILL CONTINUE TO MONITOR.
[2017-03-25 20:26] VITALS: BP 113/63
--- NOTE | 2017-03-26 03:00 | NUR ---
MS RN NOTE: PATIENT SLEEPING IN BED, NO ACUTE DISTRESS NOTED. BREATHING EVEN AND UNLABORED, NO SOB NOTED. BED LOCKED AND IN LOWEST POSITION, CALL LIGHT IN REACH, WILL CONTINUE TO MONITOR.
[2017-03-26] MEDS: ACETAMINOPHEN 325 MG TABLET PO SCH ×4 (04:58→21:06)
--- NOTE | 2017-03-26 06:10 | NUR ---
MS RN NOTE: PATIENT RESTING IN BED, NO ACUTE DISTRESS NOTED. BREATHING EVEN AND UNLABORED, NO SOB NOTED. IV TO LFA IN PLACE, MIDLINE TO GURJIT IN PLACE INFUSING D5NS AT 75 ML/HR. BED LOCKED AND IN LOWEST POSITION, CALL LIGHT IN REACH. WILL ENDORSE TO DAY NURSE TO CONTINUE WITH PLAN OF CARE.
[2017-03-26 07:14] LABS: EOSINOPHILS % (AUTO) 0.4 % (0.0-6.0); HEMATOCRIT 27 % (39-51); HEMOGLOBIN 8.9 g/dL (13.5-17.5); LYMPHOCYTES # (AUTO) 0.4 /CMM (0.8-4.8); MEAN CORPUSCULAR HEMOGLOBIN 31 PG (26.0-33.0); MEAN CORPUSCULAR HGB CONC 34 g/dl (31.0-36.0); MEAN CORPUSCULAR VOLUME 93 fL (80-96); MONOCYTES # (AUTO) 0.3 /CMM (0.1-1.30); MONOCYTES % (AUTO) 4.4 % (2.0-12.0); NEUTROPHILS # (AUTO) 5.3 /CMM (1.8-8.9); NEUTROPHILS % (AUTO) 88.2 % (43.0-81.0); PLATELET COUNT (AUTO) 158 /CMM (150-450); RDW COEFFICIENT OF VARIATION 18.3 (11.5-15.0); RED BLOOD CELL COUNT(AUTO) 2.87 MIL/uL (4.5-6.0)
[2017-03-26 07:43] LABS: CALCIUM, SERUM 7.6 mg/dL (8.5-10.1); CARBON DIOXIDE 26 mmol/L (21-32); CHLORIDE 104 mmol/L (98-107); CREATININE 0.8 mg/dL (0.6-1.3); GLUCOSE 117 mg/dL (74-106); MAGNESIUM 1.8 mg/dL (1.8-2.4); PHOSPHORUS 2.5 mg/dL (2.5-4.9); POTASSIUM 3.8 mmol/L (3.5-5.1); SODIUM SERUM 137 mmol/L (136-145); UREA NITROGEN, BLOOD 7 mg/dL (7-18)
[2017-03-26 08:00] VITALS: BP 122/73
--- NOTE | 2017-03-26 08:00 | NUR ---
MED SURGE RN: INITIAL ASSESSMENT RECEIVED PT IN BED AWAKE, ALERT, AND ORIENTED X3. NO COMPLAINTS OF PAIN, OR DISCOMFORT. DENIES SOB, ON 2L O2 VIA NC. INSTRUCTED TO CALL FOR ASSISTANCE WHEN NEEDED. [facility] BRACE AT BEDSIDE, AWAITING PT EVAL AND TREATMENT.
--- NOTE | 2017-03-26 09:30 | NUR ---
EDILSON DELGADO RN: GI FOLLOW UP SEEN BY DR. MATHUR AT THIS TIME.
--- NOTE | 2017-03-26 10:00 | NUR ---
EDILSON DELGADO RN: NOTES CAMILA ( [employer] CONSULTANT) HERE TO DISCUSS IF PT WILL WANTS TO DO AN MRI. BUT PT REFUSED FOR THE SECOND DAY IN A ROW. CN AWARE.
[2017-03-26] MEDS: DOCUSATE SODIUM 100 MG CAPSULE PO SCH ×2 (10:14→16:08)
[2017-03-26] MEDS: PANTOPRAZOLE 40 MG TABLET.DR PO SCH ×2 (10:14→16:07)
--- NOTE | 2017-03-26 10:30 | NUR ---
EDILSON DELGADO RN: NOTES UP WITH PT WITH [facility] BRACE USING FRONT WHEEL WALKER, PT TOLERATED WITHOUT COMPLAINTS OF PAIN. AFTER PT EVAL, PT UP IN CHAIR. CALL LIGHT WITHIN REACH.
--- NOTE | 2017-03-26 11:15 | NUR ---
MED SURGE RN: NOTES ASSISTED PT BACK TO BED. KEPT COMFORTABLE, BY SIDE VISITING. INSTRUCTED TO CALL FOR ASSISTANCE.
--- NOTE | 2017-03-26 14:00 | NUR ---
MED SURGE RN: NOTES PT SOUND ASLEEP. CALL LIGHT WITHIN REACH.
[2017-03-26 16:00] VITALS: BP 121/73
--- NOTE | 2017-03-26 18:00 | NUR ---
MED SURGE RN: CLOSING NOTE PT RESTING COMFORTABLY IN BED WITH AT BEDSIDE. PT STILL IN STABLE CONDITION. NO CHANGES IN CONDITION NOTED. ALL NEEDS ATTENDED TO. INSTRUCTED TO CALL FOR ASSISTANCE. CALL LIGHT WITHIN REACH.
[2017-03-26] MEDS: IV D5/ 0.9% NACL 1,000 ML IV PRN (18:21)
--- NOTE | 2017-03-26 19:30 | NUR ---
RN NOTE; RECEIVED PT IN BED AWAKE, A, OX3. BREATHING EVENLY. NO SOB. NAD. SKIN WARM AND DRY. NO C/O PAIN OR DISCOMFORT AT THIS TIME. ON ONGOING IVF HYDRATION EMBER WELL. IV SITE INTACT AND PATENT. NEEDS ATTENDED . CALL LIGHT WITHIN REACH,. WILL CONT TO MONITOR
[2017-03-26 20:00] VITALS: BP 117/62
[2017-03-27] MEDS: ACETAMINOPHEN 325 MG TABLET PO SCH ×4 (04:50→21:05)
[2017-03-27] MEDS: IV D5/ 0.9% NACL 1,000 ML IV PRN (06:44)
--- NOTE | 2017-03-27 07:03 | NUR ---
RN NOTE; PT IN BED AWAKE AND ALERT. BREATHING EVENLY, NO SOB. NAD, SKIN WARM AND DRY. NO C/O PAIN OR DISCOMFORT. ON ONGOING IVF HYDRATION EMBER WELL, NO ACUTE EVENT DURING THE NIGHT. NEEDS MET. CALL LIGHT WITHIN REACH, WILL CONT TO MONITOR AND WILL ENDORSE TO AM SHIFT FOR YVONNE,.
[2017-03-27] MEDS ORDERED: SUCRALFATE 1 G/10 ML UDC PO ONE ×2 (07:30→10:00)
[2017-03-27 07:36] LABS: BASOPHILS % (AUTO) 0.1 % (0.0-2.0); EOSINOPHILS % (AUTO) 0.1 % (0.0-6.0); HEMATOCRIT 26 % (39-51); HEMOGLOBIN 9.1 g/dL (13.5-17.5); LYMPHOCYTES # (AUTO) 0.6 /CMM (0.8-4.8); LYMPHOCYTES % (AUTO) 10.4 % (20.0-44.0); MEAN CORPUSCULAR HEMOGLOBIN 32 PG (26.0-33.0); MEAN CORPUSCULAR HGB CONC 34 g/dl (31.0-36.0); MEAN CORPUSCULAR VOLUME 92 fL (80-96); MONOCYTES # (AUTO) 0.4 /CMM (0.1-1.30); MONOCYTES % (AUTO) 7.1 % (2.0-12.0); NEUTROPHILS # (AUTO) 4.6 /CMM (1.8-8.9); NEUTROPHILS % (AUTO) 82.3 % (43.0-81.0); PLATELET COUNT (AUTO) 176 /CMM (150-450); RDW COEFFICIENT OF VARIATION 18.6 (11.5-15.0); RED BLOOD CELL COUNT(AUTO) 2.87 MIL/uL (4.5-6.0); WHITE BLOOD COUNT (AUTO) 5.5 K/uL (4.3-11.0)
--- NOTE | 2017-03-27 07:55 | NUR ---
RN MS NOTES RECEIVED PATIENT IN BED, VERBALLY RESPONSIVE, IN NO APPARENT DISTRESS. PATIENT DENIES PAIN, DENIES SOB. GURJIT MIDLINE PATENT, INFUSING D5NS AT 75ML/HR. ALL NEEDS MET, CALL LIGHT WITHIN REACH.
[2017-03-27 08:00] VITALS: BP_SYST 116; BP_SYST 150; BP_DIAS 68; BP_DIAS 70
[2017-03-27 08:03] LABS: CALCIUM, SERUM 7.5 mg/dL (8.5-10.1); CARBON DIOXIDE 26 mmol/L (21-32); CHLORIDE 103 mmol/L (98-107); CREATININE 0.8 mg/dL (0.6-1.3); GLUCOSE 112 mg/dL (74-106); MAGNESIUM 1.5 mg/dL (1.8-2.4); PHOSPHORUS 2.6 mg/dL (2.5-4.9); POTASSIUM 3.5 mmol/L (3.5-5.1); SODIUM SERUM 137 mmol/L (136-145); UREA NITROGEN, BLOOD 6 mg/dL (7-18)
[2017-03-27] MEDS: DOCUSATE SODIUM 100 MG CAPSULE PO SCH ×2 (09:21→16:57)
[2017-03-27] MEDS: PANTOPRAZOLE 40 MG TABLET.DR PO SCH ×2 (09:21→16:56)
[2017-03-27] MEDS: Magnesium 1GM/D5W 100ML PREMIX 100 ML IV SCH ×2 (10:34→12:20)
[2017-03-27] MEDS ORDERED: IPRA0.2S9 NEB (13:22)
[2017-03-27] MEDS ORDERED: DOCU-25 PO (13:22)
[2017-03-27] MEDS ORDERED: PANT40TA2 PO (13:22)
[2017-03-27] MEDS ORDERED: GUAI100S11 PO (13:22)
[2017-03-27] MEDS ORDERED: OXYC5CAP3 PO (13:22)
[2017-03-27 16:00] VITALS: BP 137/72
--- NOTE | 2017-03-27 17:00 | NUR ---
GERMAIN MS NOTES PATIENT NOTED WITH TEMP OF 101.6 INFORMED ALEA SALCEDO WITH NEW ORDERS. ALL ORDERS NOTED AND CARRIED OUT.
--- NOTE | 2017-03-27 19:00 | NUR ---
RN MS CLOSING NOTES PATIENT IN BED, NO APPARENT DISTRESS NOTED. PATIENT VERBALLY RESPONSIVE NOTED WITH EPISODE OF CONFUSION. , DENIES PAIN. PATIENT HAD A FEVER DURING SHIFT MD AWARE TYLENOL AND COOLING MEASURES INITIATED. ALL DUE MEDS GIVEN ALL NEEDS MET. GURJIT MIDLINE PATENT. WILL ENDORSE CARE TO PM SHIFT.
--- NOTE | 2017-03-27 19:35 | NUR ---
MS RN NOTE RECEIVED PATIENT FROM DAY SHIFT, PATIENT IS ALERT AND ORIENTEDX2-3, CONFUSED LITTLE FROM THIS AFTERNOON, COUGHING DRY COUGH WELL. PER DAY SHIFT, HE HAD HIGH TEMP OF 101.4 BEFORE TAKING TYLENOL, WILL CONTINUE TO MONITOR HIS TEMP. NO S/S OF PAIN NOTED. MID LINE ON RIGHT UPPER ARM IS PATENT AND INTACT, FLUID IS RUNNING. SRX2, BED IN LOW POSITION, CALL LIGHT WITHIN REACH, WILL CONTINUE TO MONITOR PATIENT.
[2017-03-27 20:00] VITALS: BP 122/66
--- NOTE | 2017-03-27 20:00 | NUR ---
MS RN NOTE PATIENT OXYGEN SAT WAS 88-91 WITH 4L/MIN VIA NC, CALLED RT STACEY FOR ATROVENT 0.5MG, VENTOLIN 1.25MG AND GETTING SPUTUM SAMPLE FOR CX.
[2017-03-27] MEDS: ALBUTEROL HALF STRENGTH 1.25 MG/3 ML VIAL.NEB NEB PRN (20:29)
--- NOTE | 2017-03-27 20:40 | NUR ---
MS RN NOTE RT AT BEDSIDE FOR PRN ATROVENT, VENTOLIN TX AND GETTING SPUTUM SAMPLE.
[2017-03-27] MEDS: GUAIFENESIN 300 MG/15 ML UDC PO PRN (21:20)
--- NOTE | 2017-03-27 21:22 | NUR ---
MS RN NOTE PATIENT KEEPS COUGHING INTERMITTENTLY, ROBITUSSIN PO GIVEN. WILL MONITOR ACCORDINGLY.
--- NOTE | 2017-03-27 22:30 | NUR ---
MS RN NOTE PATIENT'S RECHECK TEMP WAS 99.1F, REMOVED ICE PACKS PER PATIENT'S REQUEST.
[2017-03-28] MEDS: IV D5/ 0.9% NACL 1,000 ML IV PRN ×2 (00:16→19:53)
[2017-03-28 03:55] VITALS: BP 123/71
[2017-03-28] MEDS: ACETAMINOPHEN 325 MG TABLET PO SCH ×4 (03:56→22:00)
--- NOTE | 2017-03-28 03:57 | NUR ---
MS RN NOTE RECHECKED PT'S VS 123/71 PULSE 92 RR 18 TEMP 98.0F O2 94%, PATIENT DENIES PAIN AT THIS TIME. NO INDICATION TO TAKE TYLENOL 650MG PO FOR 0. PATIENT ALSO STATED THAT I DON'T WANT TO TAKE IT AT THIS TIME. NON-ADMINISTER ON EMAR.
--- NOTE | 2017-03-28 04:14 | NUR ---
MS RN NOTE PT TOOK ROBITUSSIN LAST NIGHT AT 0, NOTICED THAT IT WAS NOT SCANNED. MANUALLY ENTERED.
--- NOTE | 2017-03-28 06:41 | NUR ---
MS RN NOTE PATIENT IS SLEEPING IN BED COMFORTABLY, NO S/S OF RESPIRATORY DISTRESS AND NO FACIAL GRIMACE NOTED AT THIS TIME. MID LINE ON RIGHT UPPER ARM IS PATENT AND INTACT, FLUID IS RUNNING. WILL ENDORSE TO DAY SHIFT NURSE FOR YVONNE.
[2017-03-28 07:40] LABS: BASOPHILS % (AUTO) 0.2 % (0.0-2.0); EOSINOPHILS % (AUTO) 0.3 % (0.0-6.0); HEMATOCRIT 28 % (39-51); HEMOGLOBIN 9.3 g/dL (13.5-17.5); LYMPHOCYTES # (AUTO) 0.8 /CMM (0.8-4.8); LYMPHOCYTES % (AUTO) 12.1 % (20.0-44.0); MEAN CORPUSCULAR HEMOGLOBIN 31 PG (26.0-33.0); MEAN CORPUSCULAR HGB CONC 34 g/dl (31.0-36.0); MEAN CORPUSCULAR VOLUME 93 fL (80-96); MONOCYTES # (AUTO) 0.4 /CMM (0.1-1.30); MONOCYTES % (AUTO) 6.4 % (2.0-12.0); NEUTROPHILS # (AUTO) 5.1 /CMM (1.8-8.9); PLATELET COUNT (AUTO) 205 /CMM (150-450); RDW COEFFICIENT OF VARIATION 18.9 (11.5-15.0); RED BLOOD CELL COUNT(AUTO) 2.97 MIL/uL (4.5-6.0); WHITE BLOOD COUNT (AUTO) 6.3 K/uL (4.3-11.0)
[2017-03-28 07:43] LABS: CALCIUM, SERUM 7.9 mg/dL (8.5-10.1); CARBON DIOXIDE 28 mmol/L (21-32); CHLORIDE 106 mmol/L (98-107); CREATININE 0.9 mg/dL (0.6-1.3); GLUCOSE 112 mg/dL (74-106); MAGNESIUM 1.8 mg/dL (1.8-2.4); POTASSIUM 4.1 mmol/L (3.5-5.1); SODIUM SERUM 143 mmol/L (136-145); UREA NITROGEN, BLOOD 8 mg/dL (7-18)
[2017-03-28 08:00] VITALS: BP 137/74
--- NOTE | 2017-03-28 08:00 | NUR ---
MS RN OPENING NOTE PATIENT IS ALERT AND ORIENTED x3. NO PAIN AT THIS TIME. NO SOB OR DISTRESS NOTED.C ALL LIGHT WITHIN REACH. SAFETY MEASURES IMPLEMENTED. IV INTACT AND PATENT NO REDNESS OR SWELLING NOTED. ABLE TO COMMUNICATE NEEDS. ON 4L/MIN OF OXYGEN VIA NASAL CANNULA TOLERATING WELL. WILL CONTINUE TO MONITOR
[2017-03-28] MEDS: DOCUSATE SODIUM 100 MG CAPSULE PO SCH ×2 (08:29→16:55)
[2017-03-28] MEDS: PANTOPRAZOLE 40 MG TABLET.DR PO SCH ×2 (08:29→16:55)
[2017-03-28] MEDS ORDERED: DEXAMETHASONE SOD PHOSPHATE 10 MG/ML VIAL IV STA (14:22)
[2017-03-28] MEDS ORDERED: FEE PK DOSING 1 MIN EA MC ONE (14:40)
--- NOTE | 2017-03-28 14:57 | NUR ---
RN NOTE PATIENT IS GOING DOWN TO CT SCAN. PATIENT IS STABLE AT THIS TIME. VITALS ARE STABLE.
--- NOTE | 2017-03-28 15:10 | NUR ---
MS RN NOTE PATIENT IS BACK FROM CT SCAN. PATIENT IS STABLE AT THIS TIME. WILL CONTINUE TO MONITOR
[2017-03-28] MEDS: LEVOFLOXACIN 500 MG /D5W 100ML 500 MG in PREMIX 1 EA IV SCH (15:45)
[2017-03-28] MEDS: GUAIFENESIN LA 600 MG TABLET.SA PO SCH (15:48)
[2017-03-28] MEDS: ALBUTEROL HALF STRENGTH 1.25 MG/3 ML VIAL.NEB NEB SCH ×3 (15:53→23:21)
[2017-03-28] MEDS: IPRATROPIUM NEB FS 0.5 MG/2.5 ML AMPUL.NEB NEB SCH ×3 (15:53→23:21)
[2017-03-28] MEDS ORDERED: VANCOMYCIN 1 GM in IV D5W 250 ML IV ONE (16:00)
[2017-03-28 16:10] VITALS: BP 106/59
[2017-03-28] MEDS: PIPERACILLIN /TAZOBACTAM 3.375 G in IV D5W 50 ML IV SCH (18:22)
--- NOTE | 2017-03-28 18:28 | NUR ---
MS RN CLOSING NOTE PATIENT IS ALERT AND ORIENTED x3 NO PERIODS OF CONFUSION. NO PAIN AT THIS TIME. NO SOB OR DISTRESS NOTED. CALL LIGHT WITHIN REACH AT ALL TIMES. SAFETY MEASURES IMPLEMENTED. ABLE TO COMMUNICATE NEEDS. IV INTACT AND PATENT NO REDNESS OR SWELLING NOTED. IV FLUIDS RUNNING AT THIS TIME. CT SCAN OF CHEST DONE EARLIER TODAY. STARTED ON LEVAQUIN AND VANCOMYCIN IV, TOLERATED WELL. ON 4L/MIN OF OXYGEN VIA NASAL CANNULA, SATURATING AT 90%, MD AWARE. RECEIVING BREATHING TREATMENTS. WILL ENDORSE TO HERBARIUM WORKER NURSE FOR YVONNE.
--- NOTE | 2017-03-28 19:40 | NUR ---
MS RN NOTE RECEIVED PATIENT FROM DAY SHIFT, PATIENT IS ALERT AND ORIENTEDX3, GETTING 6 L/MIN O2 VIA NC, NO S/S OF RESPIRATORY DISTRESS OR PAIN NOTED. MID LINE ON RIGHT UPPER ARM IS PATENT AND INTACT, FLUID IS RUNNING. SRX2, BED IN LOW POSITION, CALL LIGHT WITHIN REACH, WILL CONTINUE TO MONITOR PATIENT.
[2017-03-28 20:00] VITALS: BP 112/69
[2017-03-29] MEDS: PIPERACILLIN /TAZOBACTAM 3.375 G in IV D5W 50 ML IV SCH ×5 (00:14→23:52)
[2017-03-29] MEDS: IPRATROPIUM NEB FS 0.5 MG/2.5 ML AMPUL.NEB NEB SCH ×6 (03:29→23:59)
[2017-03-29] MEDS: ALBUTEROL HALF STRENGTH 1.25 MG/3 ML VIAL.NEB NEB SCH ×6 (03:29→23:59)
[2017-03-29] MEDS: VANCOMYCIN 1 GM in IV D5W 250 ML IV SCH ×2 (03:55→16:39)
[2017-03-29] MEDS: ACETAMINOPHEN 325 MG TABLET PO SCH ×4 (04:00→22:00)
--- NOTE | 2017-03-29 06:39 | NUR ---
MS RN NOTE PATIENT IS RESTING IN BED COMFORTABLY, NO S/S OF RESPIRATORY DISTRESS AND NO FACIAL GRIMACE NOTED AT THIS TIME. MID LINE ON RIGHT UPPER ARM IS PATENT AND INTACT, FLUID IS RUNNING. WILL ENDORSE TO DAY SHIFT NURSE FOR YVONNE.
[2017-03-29 06:47] LABS: CALCIUM, SERUM 8.3 mg/dL (8.5-10.1); CREATININE 0.9 mg/dL (0.6-1.3); GLUCOSE 193 mg/dL (74-106); UREA NITROGEN, BLOOD 9 mg/dL (7-18)
[2017-03-29 06:55] LABS: BASOPHILS % (AUTO) 0.1 % (0.0-2.0); HEMATOCRIT 27 % (39-51); HEMOGLOBIN 8.8 g/dL (13.5-17.5); LYMPHOCYTES # (AUTO) 0.7 /CMM (0.8-4.8); LYMPHOCYTES % (AUTO) 13.8 % (20.0-44.0); MEAN CORPUSCULAR HEMOGLOBIN 31 PG (26.0-33.0); MEAN CORPUSCULAR HGB CONC 33 g/dl (31.0-36.0); MEAN CORPUSCULAR VOLUME 93 fL (80-96); MONOCYTES # (AUTO) 0.3 /CMM (0.1-1.30); MONOCYTES % (AUTO) 7.3 % (2.0-12.0); NEUTROPHILS # (AUTO) 3.8 /CMM (1.8-8.9); NEUTROPHILS % (AUTO) 78.8 % (43.0-81.0); PLATELET COUNT (AUTO) 220 /CMM (150-450); RDW COEFFICIENT OF VARIATION 18.2 (11.5-15.0); RED BLOOD CELL COUNT(AUTO) 2.88 MIL/uL (4.5-6.0); WHITE BLOOD COUNT (AUTO) 4.8 K/uL (4.3-11.0)
[2017-03-29 07:02] LABS: CARBON DIOXIDE 27 mmol/L (21-32); CHLORIDE 104 mmol/L (98-107); SODIUM SERUM 140 mmol/L (136-145)
--- NOTE | 2017-03-29 07:45 | NUR ---
MS RN OPENING NOTE PATIENT IS ALERT AND ORIENTED x3. NO PAIN AT THIS TIME. NO SOB OR DISTRESS NOTED. CALL LIGHT WITHIN REACH. SAFETY MEASURES IMPLEMENTED. ABLE TO COMMUNICATE NEEDS. IV INTACT AND PATENT NO REDNESS OR SWELLING NOTED. MIDLINE INTACT AND PATENT, FLUIDS RUNNING AT THIS TIME. ON 6L/MIN OF OXYGEN VIA NASAL CANNULA. WILL CONTINUE TO MONITOR
[2017-03-29 08:00] VITALS: BP 120/71
[2017-03-29] MEDS: GUAIFENESIN LA 600 MG TABLET.SA PO SCH ×2 (08:13→20:23)
[2017-03-29] MEDS: PANTOPRAZOLE 40 MG TABLET.DR PO SCH ×2 (08:13→16:39)
[2017-03-29] MEDS: DOCUSATE SODIUM 100 MG CAPSULE PO SCH ×2 (08:13→16:39)
[2017-03-29 09:44] LABS: ABG BASE EXCESS 2.2 mmol/L; ABG OXYGEN SATURATION 83.8 % (92.0-98.5); ABG PCO2 33.9 mmHg (35.0-45.0); ABG PH 7.492 (7.350-7.450); ABG PO2 46.6 mmHg (75.0-100.0); AaDO2 62.5 mmHg; COHb 0.4 % (0.5-1.5); MetHb 0.6 % (0.0-1.5); SITE, ABG Right Radial; VENT MODE, BG ROOM AIR
--- NOTE | 2017-03-29 09:59 | NUR ---
MS RN NOTE INFORMED DR. LEMUS ABOUT PATIENT'S CONDITION AND ON HIGH OXYGEN VOLUME. ABG ORDER NOTED AND CARRIED OUT. RESULTS RECEIVED, WAITING TO GIVE RESULTS TO DR. LEMUS
[2017-03-29] MEDS: LEVOFLOXACIN 500 MG /D5W 100ML 500 MG in PREMIX 1 EA IV SCH (14:52)
[2017-03-29 16:00] VITALS: BP 104/62
[2017-03-29] MEDS: DEXAMETHASONE 1 MG TABLET PO SCH (16:39)
--- NOTE | 2017-03-29 18:20 | NUR ---
MS RN CLOSING NOTE PATIENT IS ALERT AND ORIENTED x3. NO PAIN AT THIS TIME. NO SOB OR DISTRESS NOTED. CALL LIGHT WITHIN REACH AT ALL TIMES. SAFETY MEASURES IMPLEMENTED. ALL DUE MEDICATIONS GIVEN ORDERED AND TOLERATED WELL. IV INTACT AND PATENT NO REDNESS OR SWELLING NOTED. ON 6L/MIN OF OXYGEN VIA NASAL CANNULA WITH HUMIDIFIER. FAMILY AT BEDSIDE. WILL ENDORSE TO FILLER LEAF CUTTER LONG NURSE
--- NOTE | 2017-03-29 19:30 | NUR ---
MS RN NOTE: PATIENT RESTING IN BED, FAMILY AT BEDSIDE, NO ACUTE DISTRESS NOTED. BREATHING EVEN AND UNLABORED, NO SOB NOTED. OXYGEN VIA NC IN PLACE. GURJIT MIDLINE IN PLACE. BED LOCKED AND IN LOWEST POSITION, CALL LIGHT IN REACH, WILL CONTINUE TO MONITOR.
[2017-03-29 20:00] VITALS: BP 115/68
--- NOTE | 2017-03-29 22:30 | NUR ---
MS RN NOTE: PATIENT REFUSES TYLENOL ORDERED, PATIENT DENIES ANY PAIN AT THIS TIME AND DOES NOT WANT OR NEED IT. EXPLAINED BENEFITS OF MEDICATIONS, BUT CONTINUE TO REFUSE MEDICATIONS. WILL CONTINUE TO MONITOR.
[2017-03-30] VITALS (12 sets, daily range): BP systolic 104–138; BP diastolic 60–74
--- NOTE | 2017-03-30 02:45 | NUR ---
MS RN NOTE: PATIENT SLEEPING IN BED, NO ACUTE DISTRESS NOTED. REPORT GIVEN TO LONA FOR CONTINUATION OF CARE.
--- NOTE | 2017-03-30 02:48 | NUR ---
RN NOTES RECEIVED REPORT FROM YURI, WILL RESUME CARE OF PATIENT
[2017-03-30] MEDS: VANCOMYCIN 1 GM in IV D5W 250 ML IV SCH (03:29)
[2017-03-30] MEDS: ACETAMINOPHEN 325 MG TABLET PO SCH ×4 (03:34→22:00)
[2017-03-30] MEDS: IPRATROPIUM NEB FS 0.5 MG/2.5 ML AMPUL.NEB NEB SCH ×6 (03:58→23:30)
[2017-03-30] MEDS: ALBUTEROL HALF STRENGTH 1.25 MG/3 ML VIAL.NEB NEB SCH ×6 (03:58→23:30)
[2017-03-30] MEDS: PIPERACILLIN /TAZOBACTAM 3.375 G in IV D5W 50 ML IV SCH ×3 (06:02→17:35)
--- NOTE | 2017-03-30 06:30 | NUR ---
RN NOTES PATIENT IS ALERT AND AWAKE, NO DISTRESS, TOLERATING 6LPM VIA NC WITH HUMIDIFIER. NO COMPLAIN OF PAIN, COMPLIANT WITH MEDICATION, SLEPT FOR 5 HOURS INTERMITTENTLY, GURJIT MIDLINE IS PATENT, ON KVO. KEPT SAFE AND COMFORTABLE, CALL LIGHT WITHIN REACH.
[2017-03-30 06:42] LABS: BASOPHILS % (AUTO) 0.2 % (0.0-2.0); EOSINOPHILS % (AUTO) 0.3 % (0.0-6.0); HEMATOCRIT 23 % (39-51); HEMOGLOBIN 7.9 g/dL (13.5-17.5); LYMPHOCYTES # (AUTO) 0.8 /CMM (0.8-4.8); LYMPHOCYTES % (AUTO) 13.5 % (20.0-44.0); MEAN CORPUSCULAR HEMOGLOBIN 31 PG (26.0-33.0); MEAN CORPUSCULAR HGB CONC 34 g/dl (31.0-36.0); MEAN CORPUSCULAR VOLUME 93 fL (80-96); MONOCYTES # (AUTO) 0.4 /CMM (0.1-1.30); NEUTROPHILS # (AUTO) 4.6 /CMM (1.8-8.9); PLATELET COUNT (AUTO) 220 /CMM (150-450); RDW COEFFICIENT OF VARIATION 18.2 (11.5-15.0); RED BLOOD CELL COUNT(AUTO) 2.52 MIL/uL (4.5-6.0); WHITE BLOOD COUNT (AUTO) 5.8 K/uL (4.3-11.0)
[2017-03-30 06:58] LABS: CALCIUM, SERUM 8.3 mg/dL (8.5-10.1); CARBON DIOXIDE 27 mmol/L (21-32); CHLORIDE 106 mmol/L (98-107); CREATININE 0.9 mg/dL (0.6-1.3); GLUCOSE 111 mg/dL (74-106); POTASSIUM 3.6 mmol/L (3.5-5.1); SODIUM SERUM 141 mmol/L (136-145); UREA NITROGEN, BLOOD 8 mg/dL (7-18)
--- NOTE | 2017-03-30 07:05 | NUR ---
MS RN OPENING NOTES RECEIVED PT. FROM NIGHTSHIFT NURSE IN STABLE CONDITION. PT IS A/O X3. NO SOB OR SIGNS OF DISTRESS NOTED. BREATHING IS EVEN AND UNLABORED. PT. HAS A PERSISTENT COUGH THAT IS UNPRODUCTIVE AT THIS TIME. PT IS ON 6L O2 VIA NC AND SATING WELL AT 98%. PT DENIES ANY PAIN AT THIS TIME. RIGHT UPPER ARM MIDLINE IS INTACT AND PATENT TO NS FLUSH. NO REDNESS OR SIGNS OF INFILTRATION NOTED TO SITE. BACK BRACE BY BEDSIDE. PT. INSTRUCTED TO USE IT WHEN OUT OF BED. PT. VERBALIZED UNDERSTANDING AND PROPER USE OF EQUIPMENT. WALKER ALSO BY BEDSIDE AND WITHIN EASY REACH. BED IN LOW LOCKED POSITION, SIDE RAILS UP X2, CALL LIGHT WITHIN REACH. WILL CONTINUE TO MONITOR
[2017-03-30] MEDS: PANTOPRAZOLE 40 MG TABLET.DR PO SCH ×2 (08:45→17:41)
[2017-03-30] MEDS: DEXAMETHASONE 1 MG TABLET PO SCH ×2 (08:46→17:41)
[2017-03-30] MEDS: GUAIFENESIN LA 600 MG TABLET.SA PO SCH ×2 (08:46→20:13)
[2017-03-30] MEDS: DOCUSATE SODIUM 100 MG CAPSULE PO SCH ×2 (08:46→17:41)
[2017-03-30] MEDS: LEVOFLOXACIN 500 MG /D5W 100ML 500 MG in PREMIX 1 EA IV SCH (15:10)
--- NOTE | 2017-03-30 15:49 | NUR ---
MS RN NOTES LAB CALLED AND CONFIRMED THAT PT'S BLOOD IS READY. PT CURRENTLY HAS LEVAQUIN RUNNING FOR ABOUT ANOTHER HOUR AND 10 MIN, THEN VANCO ONCE THAT IS COMPLETE AND ZOSYN @ 1800.CHARGE NURSE MADE AWARE OF THIS AND RECOMMENDED THAT I FINISH THE IV ANTIBIOTIC INFUSIONS AND ENDORSE TO NIGHTSHIFT NURSE TO INFUSE THE BLOOD. WILL ENDORSE TO NIGHTSHIFT RN
[2017-03-30] MEDS: VANCOMYCIN 1.25 GM in IV D5W 500 ML IV SCH (18:22)
--- NOTE | 2017-03-30 18:46 | NUR ---
MS RN CLOSING NOTES PT REMAINS IN STABLE CONDITION. ALL NEEDS WERE MET DURING SHIFT AND ORDERS CARRIED OUT ACCORDINGLY. IV REMAINS INTACT AND PATENT,M CURRENTLY INFUSING VANCO @ 250ML/HR. PT. TOLERATING INFUSION WELL. WILL ENDORSE TO NIGHTSHIFT NURSE TO INFUSE 1 UNIT OF PRBC ONCE VANCO INFUSION IS COMPLETE. ALL SAFETY MEASURES REMAIN IN PLACE. FAMILY AT BEDSIDE. WILL ENDORSE TO NIGHTSHIFT NURSE FOR YVONNE
[2017-03-30] MEDS ORDERED: IPRATROPIUM NEB FS 0.5 MG/2.5 ML AMPUL.NEB ONE (19:23)
[2017-03-30] MEDS ORDERED: ALBUTEROL HALF STRENGTH 1.25 MG/3 ML VIAL.NEB ONE (19:23)
--- NOTE | 2017-03-30 19:49 | NUR ---
RN INITIAL NOTES: RECEIVED REPORT FROM AFSATU RN, PT IN BED, AWAKE, FAMILY AT BED SIDE, PT IS A/O X3 PLEASANT PT ON 6L VIA NC RESPIRATION EVEN AND UNLABORED, PT HAS GURJTI MIDLINE CURRENTLY RECEIVING VANCOMYCIN IV TO RUN FOR 2HRS, FOR BLOOD TRANSFUSION JUST WAITING FOR ATB TO FINISH. SAFETY PRECAUTIONS FOR FALL INITIATED CALL LIGHT IN REACH WILL CONTINUE TO MONITOR
--- NOTE | 2017-03-30 21:52 | NUR ---
BLOOD TRANSFUSION: PT HAS ORDER TO TRANSFUSE 1UNIT PRBC, VS TAKEN AND RECORDED PRIOR TO PICKING UP THE BLOOD, PLEASE SEE THE VS LOG, THEN BEFORE VERIFYING WITH ANOTHER RN, I DECIDED TO CHECK THE VS ONE MORE TIME, NOTED PT'S HR WAS 135, INFORMED PRETZEL TWISTING MACHINE OPERATOR AQUILES, STATED TO PLACED PT ON TELE MONITORING TO OBSERVE MONITOR THE HEART RATE, CURRENTLY PT'S HR IS 102, PER PRETZEL TWISTING MACHINE OPERATOR RECOMMENDATION TO START THE BLOOD TRANSFUSION. PER DR LEMUS ORDER, TO START BLOOD TRANSFUSION AT 60ML/HR FOR 15MINS, THEN INCREASE RATE. WILL STAY WITH THE PT FOR 30MINS TO MONITOR FOR ANY S/S OF BLOOD TRANSFUSION REACTION.
--- NOTE | 2017-03-30 22:30 | NUR ---
WIND ENERGY TECHNICIAN: VS STABLE, PT DENIES ANY SOB HEAD ACHE CHEST PAIN ITCHINESS OR ANY OTHER ALLERGIC REACTION, PT STILL ON TELEMONITORING TO MAKE SURE HEART RATE IS WITHIN NORMAL RANGE
[2017-03-31] VITALS (8 sets, daily range): BP systolic 108–128; BP diastolic 65–77
--- NOTE | 2017-03-31 00:56 | NUR ---
COMPLETED BLOOD TRANSFUSION: BLOOD TRANSFUSION FINISHED AT THIS TIME, VS REMAINS STABLE, NO BLOOD TRANSFUSION REACTION NOTED, WILL CONTINUE MONITORING THE PT,
--- NOTE | 2017-03-31 00:57 | NUR ---
RN NOTES: AFTER FINISHING BLOOD, RUN THE NORMAL SALINE, WILL CONTINUE MONITORING THE PT FOR ANY S/S OF POST TRANSFUSION REACTION
[2017-03-31] MEDS: PIPERACILLIN /TAZOBACTAM 3.375 G in IV D5W 50 ML IV SCH ×4 (01:15→20:02)
[2017-03-31] MEDS: IV D5/ 0.9% NACL 1,000 ML IV PRN (01:15)
--- NOTE | 2017-03-31 01:18 | NUR ---
LATE ADMINISTRATION OF ZOSYN: ZOSYN FOR 0000, WAS ADMINISTERED AT THIS TIME PT RECEIVING BLOOD TRANSFUSION AT 0000, COMPLETED BLOOD TRANSFUSION AT 0056, THEN RUN THE NORMAL SALINE AT 75ML/HR FOR 20MINS,
[2017-03-31] MEDS: IPRATROPIUM NEB FS 0.5 MG/2.5 ML AMPUL.NEB NEB SCH ×6 (03:12→23:34)
[2017-03-31] MEDS: ALBUTEROL HALF STRENGTH 1.25 MG/3 ML VIAL.NEB NEB SCH ×6 (03:12→23:34)
[2017-03-31] MEDS: ACETAMINOPHEN 325 MG TABLET PO SCH ×4 (04:00→21:53)
[2017-03-31] MEDS: VANCOMYCIN 1.25 GM in IV D5W 500 ML IV SCH ×2 (05:17→17:40)
--- NOTE | 2017-03-31 06:35 | NUR ---
RN CLOSING NOTES: PT IN BED, AWAKE, REMAINS A/O X3 ON 6L VIA NC RESPIRATION EVEN AND UNLABORED, GURJIT MIDLINE REMAINS IN PLACED PATENT AND FLUSHING WELL, INFUSING WITH D5NS AT 75ML/HR. NO S/S OF ACTIVE BLEEDING NOTED. VS REMAINS STABLE, NEEDS ATTENDED, SAFETY PRECAUTIONS FOR FALL REMAINS ENGAGED, CALL LIGHT IN REACH, WILL ENDORSE TO DAY RN FOR YVONNE.
--- NOTE | 2017-03-31 07:05 | NUR ---
MS RN OPENING NOTES RECEIVED PT. FROM NIGHTSHIFT NURSE IN STABLE CONDITION. PT IS A/O X3. NO SOB OR SIGNS OF DISTRESS NOTED. PT IS RESTING PEACEFULLY IN BED, BUT IS EASILY AROUSABLE. BREATHING IS EVEN AND UNLABORED. PT IS ON 6L O2 VIA NC AND SATING WELL AT 99%. PT DENIES ANY PAIN AT THIS TIME. RIGHT UPPER ARM MIDLINE IS INTACT AND PATENT, CURRENTLY INFUSING VANCO FROM THE NIGHTSHIFT. WILL ADMINISTER 0600 ZOSYN ONCE VANCO IS COMPLETE. PT IS TOLERATING INFUSION WELL. NO REDNESS OR SIGNS OF INFILTRATION NOTED TO SITE. BACK BRACE BY BEDSIDE. PT. INSTRUCTED TO USE IT WHEN OUT OF BED. PT. VERBALIZED UNDERSTANDING AND PROPER USE OF EQUIPMENT. WALKER ALSO BY BEDSIDE AND WITHIN EASY REACH. BED IN LOW LOCKED POSITION, SIDE RAILS UP X2, CALL LIGHT WITHIN REACH. WILL CONTINUE TO MONITOR
--- NOTE | 2017-03-31 07:07 | NUR ---
RN NOTES: INFORMED DAY RN AFSATU THAT VANCOMYCIN STILL ONGOING, THERE'S STILL 150ML LEFT, THE ZOSYN IS SCHEDULED AT 0600AM, BUT SINCE THE SCENARIO IS VANCO STILL ONGOING, I ENDORSED TO [facility] TO HANG THE MEDICATION AFTER VANCO IV IS FINISH.
[2017-03-31 07:46] LABS: ABG BASE EXCESS 4.3 mmol/L; ABG OXYGEN SATURATION 95.6 % (92.0-98.5); ABG PCO2 38.5 mmHg (35.0-45.0); ABG PO2 81.3 mmHg (75.0-100.0); AaDO2 159.6 mmHg; COHb 0.2 % (0.5-1.5); MetHb 0.7 % (0.0-1.5); O2Hb 94.7 % (94.0-97.0); SITE, ABG Right Radial; VENT MODE, BG Nasal Cannula
[2017-03-31 08:01] LABS: CALCIUM, SERUM 8.1 mg/dL (8.5-10.1); CARBON DIOXIDE 28 mmol/L (21-32); CHLORIDE 103 mmol/L (98-107); CREATININE 0.9 mg/dL (0.6-1.3); GLUCOSE 119 mg/dL (74-106); MAGNESIUM 1.5 mg/dL (1.8-2.4); PHOSPHORUS 3.7 mg/dL (2.5-4.9); POTASSIUM 3.4 mmol/L (3.5-5.1); SODIUM SERUM 139 mmol/L (136-145); UREA NITROGEN, BLOOD 5 mg/dL (7-18)
[2017-03-31] MEDS: DEXAMETHASONE 1 MG TABLET PO SCH ×2 (08:20→17:45)
[2017-03-31] MEDS: PANTOPRAZOLE 40 MG TABLET.DR PO SCH ×2 (08:20→17:45)
[2017-03-31] MEDS: GUAIFENESIN LA 600 MG TABLET.SA PO SCH ×2 (08:20→20:03)
[2017-03-31] MEDS: DOCUSATE SODIUM 100 MG CAPSULE PO SCH ×2 (08:20→17:44)
[2017-03-31 09:41] LABS: BASOPHILS % (AUTO) 0.4 % (0.0-2.0); EOSINOPHILS % (AUTO) 0.3 % (0.0-6.0); HEMATOCRIT 26 % (39-51); HEMOGLOBIN 8.6 g/dL (13.5-17.5); LYMPHOCYTES # (AUTO) 0.8 /CMM (0.8-4.8); LYMPHOCYTES % (AUTO) 11.6 % (20.0-44.0); MEAN CORPUSCULAR HEMOGLOBIN 31 PG (26.0-33.0); MEAN CORPUSCULAR HGB CONC 33 g/dl (31.0-36.0); MEAN CORPUSCULAR VOLUME 94 fL (80-96); MONOCYTES # (AUTO) 0.4 /CMM (0.1-1.30); MONOCYTES % (AUTO) 6.4 % (2.0-12.0); NEUTROPHILS # (AUTO) 5.5 /CMM (1.8-8.9); NEUTROPHILS % (AUTO) 81.3 % (43.0-81.0); PLATELET COUNT (AUTO) 215 /CMM (150-450); RDW COEFFICIENT OF VARIATION 17.5 (11.5-15.0); RED BLOOD CELL COUNT(AUTO) 2.81 MIL/uL (4.5-6.0); WHITE BLOOD COUNT (AUTO) 6.7 K/uL (4.3-11.0)
--- NOTE | 2017-03-31 09:44 | NUR ---
MS RN NOTES PT. REFUSED SCHEDULED TYLENOL. MEDICATION EDUCATION PROVIDED. PT DENIES ANY PAIN AT THIS TIME. CURRENT TEMPERATURE IS 97.7. WILL CONTINUE TO MONITOR.
[2017-03-31] MEDS ORDERED: POTASSIUM CHLORIDE 20 MEQ POWDER PACKET PO SCH (10:00)
[2017-03-31] MEDS: Magnesium 1GM/D5W 100ML PREMIX 100 ML IV SCH ×2 (12:16→14:01)
[2017-03-31] MEDS: LEVOFLOXACIN (500MG) 500 MG TABLET PO SCH (17:44)
--- NOTE | 2017-03-31 18:55 | NUR ---
MS RN CLOSING NOTES PT REMAINS IN STABLE CONDITION. ALL NEEDS WERE MET DURING SHIFT AND ORDERS CARRIED OUT ACCORDINGLY. IV REMAINS INTACT AND PATENT CURRENTLY INFUSING VANCO @ 250ML/HR. PT. TOLERATING INFUSION WELL. WILL ENDORSE TO NIGHTSHIFT NURSE TO INFUSE 1800 ZOSYN AFTER VANCO INFUSION IS COMPLETE. ALL SAFETY MEASURES REMAIN IN PLACE. FAMILY AT BEDSIDE. WILL ENDORSE TO NIGHTSHIFT NURSE FOR YVONNE
--- NOTE | 2017-03-31 19:57 | NUR ---
RN INITIAL NOTES: RECEIVED REPORT FROM AFSATU RN, PT IN BED, AWAKE, FAMILY AT BED SIDE, PT IS A/O X3, PT ON 4L VIA NC RESPIRATION EVEN AND UNLABORED, PT HAS GURJIT MIDLINE CURRENTLY RECEIVING VANCOMYCIN IV TO RUN FOR 2HRS, SAFETY PRECAUTIONS FOR FALL INITIATED CALL LIGHT IN REACH WILL CONTINUE TO MONITOR
--- NOTE | 2017-03-31 21:53 | NUR ---
rn notes: pt refused tylenol, he stated that he doesnt have fever, temp 97.9 afebrile
[2017-04-01] MEDS: PIPERACILLIN /TAZOBACTAM 3.375 G in IV D5W 50 ML IV SCH ×4 (00:24→17:53)
[2017-04-01] MEDS: IPRATROPIUM NEB FS 0.5 MG/2.5 ML AMPUL.NEB NEB SCH ×5 (03:15→20:08)
[2017-04-01] MEDS: ALBUTEROL HALF STRENGTH 1.25 MG/3 ML VIAL.NEB NEB SCH ×5 (03:15→20:08)
[2017-04-01] MEDS: ACETAMINOPHEN 325 MG TABLET PO SCH ×4 (04:00→22:00)
[2017-04-01] MEDS: VANCOMYCIN 1.25 GM in IV D5W 500 ML IV SCH (06:19)
--- NOTE | 2017-04-01 06:56 | NUR ---
rn closing notes: pt in bed, awake, remains a/o x3, on 4l via nc respiration even and unlabored, mathew midline remains patent and flushing well, on hl. vs remains stable, needs attended, safety precautions for fall remains engaged, call light in reach will endorse to day rn for darion.
[2017-04-01 07:16] LABS: BASOPHILS % (AUTO) 0.3 % (0.0-2.0); EOSINOPHILS % (AUTO) 0.6 % (0.0-6.0); HEMATOCRIT 36 % (39-51); HEMOGLOBIN 12.1 g/dL (13.5-17.5); LYMPHOCYTES # (AUTO) 0.5 /CMM (0.8-4.8); LYMPHOCYTES % (AUTO) 10.8 % (20.0-44.0); MEAN CORPUSCULAR HEMOGLOBIN 31 PG (26.0-33.0); MEAN CORPUSCULAR HGB CONC 34 g/dl (31.0-36.0); MEAN CORPUSCULAR VOLUME 92 fL (80-96); MONOCYTES # (AUTO) 0.4 /CMM (0.1-1.30); MONOCYTES % (AUTO) 7.5 % (2.0-12.0); NEUTROPHILS % (AUTO) 80.8 % (43.0-81.0); PLATELET COUNT (AUTO) 204 /CMM (150-450); RDW COEFFICIENT OF VARIATION 17.8 (11.5-15.0); RED BLOOD CELL COUNT(AUTO) 3.89 MIL/uL (4.5-6.0)
--- NOTE | 2017-04-01 07:42 | NUR ---
MS/RN OPENING NOTE PATIENT RECEIVED IN BED IN STABLE CONDITION. ALERT AND ORIENTED TIMES 3. NO SIGNS OF ACUTE DISTRESS. NO COMPLAIN OF PAIN OR DISCOMFORT. CALL LIGHT WITHIN REACH. WILL CONTINUE TO MONITOR TO ENSURE SAFETY.
[2017-04-01 07:48] LABS: CALCIUM, SERUM 8.5 mg/dL (8.5-10.1); CARBON DIOXIDE 30 mmol/L (21-32); CHLORIDE 104 mmol/L (98-107); CREATININE 1.1 mg/dL (0.6-1.3); GLUCOSE 120 mg/dL (74-106); MAGNESIUM 2.1 mg/dL (1.8-2.4); PHOSPHORUS 4.4 mg/dL (2.5-4.9); POTASSIUM 3.9 mmol/L (3.5-5.1); SODIUM SERUM 141 mmol/L (136-145); UREA NITROGEN, BLOOD 8 mg/dL (7-18)
[2017-04-01 08:00] VITALS: BP 114/70
[2017-04-01] MEDS: DEXAMETHASONE 1 MG TABLET PO SCH ×2 (08:49→16:37)
[2017-04-01] MEDS: DOCUSATE SODIUM 100 MG CAPSULE PO SCH ×2 (08:49→16:37)
[2017-04-01] MEDS: GUAIFENESIN LA 600 MG TABLET.SA PO SCH ×2 (08:50→20:53)
[2017-04-01] MEDS: PANTOPRAZOLE 40 MG TABLET.DR PO SCH ×2 (08:59→16:37)
--- NOTE | 2017-04-01 11:51 | NUR ---
MS/RN OXYCODONE PER PATIENT eMAR THE ORDER SAYS OXYCODONE IR 5MG CAPSULE BUT IN OMNICELL ITS OXYCODONE HCL 5MG TAB. CALLED PHARMACY FOR CLARIFICATION OF ORDER, SPOKE WITH BRAYDEN FROM PHARMACY, PER BRAYDEN ITS OKAY TO ADMINISTER MEDICATION, THAT OXYCODONE ONLY COMES IN TAB AND WAS ENTER WRONG AN CAPSULE AND THAT SHE WILL MAKE I.T. AWARE TO FIX IT.
[2017-04-01] MEDS: oxyCODONE IR immediate release 5 MG CAPSULE PO PRN (11:58)
[2017-04-01 16:00] VITALS: BP 142/82
[2017-04-01] MEDS: LEVOFLOXACIN (500MG) 500 MG TABLET PO SCH (16:37)
--- NOTE | 2017-04-01 18:38 | NUR ---
MS/RN CLOSING NOTE PATIENT IN BED AWAKE IN STABLE CONDITION. ALERT AND ORIENTED TIMES 3. VANCOMYCIN HELD SECONDARY TO TROUGH OF 29H. ALL NEEDS ATTENDED TO. CALL LIGHT WITHIN REACH. WILL ENDORSE TO NEXT SHIFT FOR CONTINUITY OF CARE. Addendum: 04/01/17 at 1851 by KENYA CUENCA RN PATIENT SEEN BY DR LEMUS WITH NEW ORDERS OF ABG IN AM AND DISCHARGE TOMORROW.
--- NOTE | 2017-04-01 19:30 | NUR ---
MS RN NOTE: PATIENT RESTING IN BED, NO ACUTE DISTRESS NOTED. BREATHING EVEN AND UNLABORED, NO SOB NOTED. OXYGEN VIA NC IN PLACE. GURJIT MIDLINE IN PLACE. BED LOCKED AND IN LOWEST POSITION, CALL LIGHT IN REACH, WILL CONTINUE TO MONITOR.
[2017-04-01 20:05] VITALS: BP 98/66
--- NOTE | 2017-04-01 22:09 | NUR ---
MS RN NOTE: PATIENT REFUSES TYLENOL, PATIENT DENIES PAIN AT THIS TIME. EXPLAINED RISK AND BENEFITS, BUT CONTINUES TO REFUSE. WILL CONTINUE TO MONITOR.
[2017-04-02] MEDS: PIPERACILLIN /TAZOBACTAM 3.375 G in IV D5W 50 ML IV SCH ×3 (00:03→13:06)
[2017-04-02] MEDS: ALBUTEROL HALF STRENGTH 1.25 MG/3 ML VIAL.NEB NEB SCH ×7 (00:10→22:57)
[2017-04-02] MEDS: IPRATROPIUM NEB FS 0.5 MG/2.5 ML AMPUL.NEB NEB SCH ×7 (00:11→22:57)
[2017-04-02] MEDS: ACETAMINOPHEN 325 MG TABLET PO SCH ×4 (03:23→21:53)
--- NOTE | 2017-04-02 03:23 | NUR ---
MS RN NOTE: PATIENT REFUSES TYLENOL, PATIENT DENIES PAIN AT THIS TIME. EXPLAINED RISK AND BENEFITS, BUT CONTINUES TO REFUSE. WILL CONTINUE TO MONITOR.
--- NOTE | 2017-04-02 04:00 | NUR ---
MS RN NOTE: PATIENT NOTED WITH RASH/REDNESS TO ABDOMEN, BACK, AND BACK OF RIGHT LEG. PATIENT DENIES ITCHINESS OR IRRITATION. NO OPEN AREAS NOTED. PICTURES TAKEN AND FILED. WILL CONTINUE TO MONITOR.
--- NOTE | 2017-04-02 06:05 | NUR ---
MS RN NOTE: PATIENT RESTING IN BED, NO ACUTE DISTRESS NOTED. BREATHING EVEN AND UNLABORED, NO SOB NOTED. OXYGEN VIA NC IN PLACE. GURJIT MIDLINE IN PLACE. BED LOCKED AND IN LOWEST POSITION, CALL LIGHT IN REACH, WILL ENDORSE TO DAY NURSE TO CONTINUE WITH PLAN OF CARE.
[2017-04-02 06:29] LABS: BASOPHILS % (AUTO) 0.3 % (0.0-2.0); EOSINOPHILS # (AUTO) 0.1 /CMM (0.0-0.7); EOSINOPHILS % (AUTO) 1.1 % (0.0-6.0); HEMATOCRIT 28 % (39-51); HEMOGLOBIN 9.5 g/dL (13.5-17.5); LYMPHOCYTES # (AUTO) 0.9 /CMM (0.8-4.8); LYMPHOCYTES % (AUTO) 14.8 % (20.0-44.0); MEAN CORPUSCULAR HEMOGLOBIN 32 PG (26.0-33.0); MEAN CORPUSCULAR HGB CONC 34 g/dl (31.0-36.0); MEAN CORPUSCULAR VOLUME 93 fL (80-96); MONOCYTES # (AUTO) 0.6 /CMM (0.1-1.30); MONOCYTES % (AUTO) 9.6 % (2.0-12.0); NEUTROPHILS # (AUTO) 4.6 /CMM (1.8-8.9); NEUTROPHILS % (AUTO) 74.2 % (43.0-81.0); PLATELET COUNT (AUTO) 263 /CMM (150-450); RDW COEFFICIENT OF VARIATION 17.7 (11.5-15.0); RED BLOOD CELL COUNT(AUTO) 3.02 MIL/uL (4.5-6.0); WHITE BLOOD COUNT (AUTO) 6.2 K/uL (4.3-11.0)
[2017-04-02 06:56] LABS: CALCIUM, SERUM 8.6 mg/dL (8.5-10.1); CREATININE 1.3 mg/dL (0.6-1.3); GLUCOSE 111 mg/dL (74-106); PHOSPHORUS 4.1 mg/dL (2.5-4.9); UREA NITROGEN, BLOOD 11 mg/dL (7-18); VANCOMYCIN,TROUGH 19 ug/ml (12-20)
[2017-04-02 07:07] LABS: CHLORIDE 105 mmol/L (98-107); POTASSIUM 3.9 mmol/L (3.5-5.1); SODIUM SERUM 143 mmol/L (136-145)
[2017-04-02 07:12] LABS: CARBON DIOXIDE 29 mmol/L (21-32)
--- NOTE | 2017-04-02 07:37 | NUR ---
MS/RN OPENING NOTE PATIENT RECEIVED IN BED AWAKE, IN STABLE CONDITION. ALERT AND ORIENTED TIMES 2. ABLE TO MAKE NEEDS KNOWN. NO SIGNS OF ACUTE DISTRESS. NO COMPLAIN OF PAIN AND DISCOMFORT. ALL NEEDS ATTENDED TO. CALL LIGHT WITHIN IN REACH. WILL CONTINUE TO MONITOR TO ENSURE SAFETY.
[2017-04-02 08:00] VITALS: BP 118/62
[2017-04-02] MEDS: DOCUSATE SODIUM 100 MG CAPSULE PO SCH ×2 (08:39→16:48)
[2017-04-02] MEDS: GUAIFENESIN LA 600 MG TABLET.SA PO SCH ×2 (08:39→21:53)
[2017-04-02] MEDS: DEXAMETHASONE 1 MG TABLET PO SCH ×2 (08:39→16:46)
[2017-04-02] MEDS: PANTOPRAZOLE 40 MG TABLET.DR PO SCH ×2 (08:39→16:46)
[2017-04-02] MEDS ORDERED: VANCOMYCIN 0.75 GM in IV D5W 250 ML IV SCH (09:00)
--- NOTE | 2017-04-02 11:00 | NUR ---
MS/RN S/B Dr Chowdhury Seen by Dr Chowdhury - patient to be discharged to [facility] today. financial institution manager aware, and bed available at facility.
[2017-04-02] MEDS ORDERED: LEVO500T15 PO (11:11)
[2017-04-02] MEDS ORDERED: MAGN400O6 PO (11:11)
[2017-04-02 12:31] LABS: ABG BASE EXCESS 5.2 mmol/L; ABG OXYGEN SATURATION 88.1 % (92.0-98.5); ABG PCO2 40.3 mmHg (35.0-45.0); ABG PH 7.477 (7.350-7.450); ABG PO2 55.7 mmHg (75.0-100.0); AaDO2 45.8 mmHg; COHb 0.7 % (0.5-1.5); MetHb 0.3 % (0.0-1.5); O2Hb 87.2 % (94.0-97.0); SITE, ABG Right Radial; VENT MODE, BG ROOM AIR
[2017-04-02] MEDS ORDERED: IV NS 0.9% 250 ML BAG IV ONE (12:37)
[2017-04-02] MEDS ORDERED: IOHEXOL 300 MG/ML IV ONE (12:37)
--- NOTE | 2017-04-02 13:09 | NUR ---
MS/RN CT chest Patient back in room following CT scan of chest, r/o pneumonia -vs- mets. No result as of this time.
[2017-04-02] MEDS ORDERED: APIXABAN 5 MG TABLET PO SCH (14:00)
--- NOTE | 2017-04-02 14:00 | NUR ---
MS/RN CT result Call received from radiologist, CT chest resulted as showing PE at right lower lung base. Dr Chowdhury made aware, stated that he would follow up with Dr Muse regarding possible need for IVC filter placement. Order originally entered for xarelto, but discontinued due to patient's recent history of GI bleed. Awaiting further orders.
--- NOTE | 2017-04-02 15:26 | NUR ---
MS/RN Dr Muse Order entered into [facility] for venous duplex of bilateral lower extremities.
[2017-04-02 16:00] VITALS: BP 111/65
[2017-04-02] MEDS: LEVOFLOXACIN (500MG) 500 MG TABLET PO SCH (16:46)
[2017-04-02] MEDS: RIVAROXABAN 15 MG TABLET PO SCH (16:47)
[2017-04-02] MEDS ORDERED: RIVAROXABAN 15 MG TABLET PO SCH (17:00)
--- NOTE | 2017-04-02 18:07 | NUR ---
MS/RN End note Dr Balderas here to see other patients, mentioned to him about patient's condition and possible need for IVC filter placement. Per Dr Balderas, no surgical intervention required at this time, in agreement with Dr Muse that he should be on anticoagulates. Feels that due to patient's other health issues, even if venous dupplex were to show DVT, filter placment would cause others problems. Dr Chowdhury made aware. Will endorse to second shift supervisor.
--- NOTE | 2017-04-02 19:35 | NUR ---
RN OPENING NOTES RECEIVED REPORT FROM DAYSHIFT GERMAIN IGLESIAS. FOUND Pt AWAKE, RESTING IN BED. FAMILY VISITING AT BEDSIDE. NO S/S OF ACUTE DISTRESS OR SOB NOTED. ON 3L NC. Pt IS A/OX3, VERBAL, ABLE TO MAKE NEEDS KNOWN. IV ACCESS ON GURJIT MIDLINE. SAFETY MEASURES IN PLACE. BED LOW, LOCKED, HOB ELEVATED, SIDE RAILS UP, CALL LIGHT AND BEDSIDE TABLE WITHIN REACH. WILL CONTINUE TO MONITOR Pt THROUGHOUT THE NIGHT FOR SAFETY.
[2017-04-02 20:00] VITALS: BP 109/67
[2017-04-02] MEDS: oxyCODONE IR immediate release 5 MG CAPSULE PO PRN (21:54)
--- NOTE | 2017-04-02 22:00 | NUR ---
RN NOTES Pt REFUSED TO TAKE SCHEDULED TYLENOL 650MG Q6 AT 2200. Pt ALSO IS REFUSING TO TAKE THE 0400 SCHEDULED TYLENOL.
[2017-04-03] MEDS: IPRATROPIUM NEB FS 0.5 MG/2.5 ML AMPUL.NEB NEB SCH ×3 (02:30→11:50)
[2017-04-03] MEDS: ALBUTEROL HALF STRENGTH 1.25 MG/3 ML VIAL.NEB NEB SCH ×3 (02:30→11:50)
[2017-04-03] MEDS: ACETAMINOPHEN 325 MG TABLET PO SCH ×2 (04:00→10:00)
[2017-04-03 06:30] LABS: BASOPHILS % (AUTO) 0.4 % (0.0-2.0); EOSINOPHILS # (AUTO) 0.1 /CMM (0.0-0.7); EOSINOPHILS % (AUTO) 1.8 % (0.0-6.0); HEMATOCRIT 28 % (39-51); HEMOGLOBIN 9.3 g/dL (13.5-17.5); LYMPHOCYTES # (AUTO) 1.1 /CMM (0.8-4.8); MEAN CORPUSCULAR HEMOGLOBIN 32 PG (26.0-33.0); MEAN CORPUSCULAR HGB CONC 34 g/dl (31.0-36.0); MEAN CORPUSCULAR VOLUME 93 fL (80-96); MONOCYTES # (AUTO) 0.7 /CMM (0.1-1.30); MONOCYTES % (AUTO) 12.8 % (2.0-12.0); NEUTROPHILS # (AUTO) 3.7 /CMM (1.8-8.9); PLATELET COUNT (AUTO) 259 /CMM (150-450); RED BLOOD CELL COUNT(AUTO) 2.95 MIL/uL (4.5-6.0); WHITE BLOOD COUNT (AUTO) 5.7 K/uL (4.3-11.0)
--- NOTE | 2017-04-03 06:33 | NUR ---
RN CLOSING NOTES NO SIGNIFICANT CHANGES IN Pt's CONDITION. Pt REMAINED STABLE THROUGHOUT THE NIGHT. NO S/S OF ACUTE DISTRESS OR SOB NOTED. ALL NEEDS MET AND ATTENDED TO. SAFETY MEASURES IN PLACE. WILL ENDORSE TO DAYSHIFT RN FOR Pt's YVONNE.
[2017-04-03 06:48] LABS: CALCIUM, SERUM 8.5 mg/dL (8.5-10.1); CARBON DIOXIDE 31 mmol/L (21-32); CHLORIDE 106 mmol/L (98-107); CREATININE 1.3 mg/dL (0.6-1.3); GLUCOSE 104 mg/dL (74-106); POTASSIUM 3.5 mmol/L (3.5-5.1); SODIUM SERUM 144 mmol/L (136-145); UREA NITROGEN, BLOOD 13 mg/dL (7-18)
--- NOTE | 2017-04-03 07:52 | NUR ---
RN MS NOTES PATIENT ASLEEP BUT EASILY AROUSABLE, NO DISTRESS NOTED, BREATHING EVEN AND UNLABORED, NO SOB, PIV PATENT AND FLUSHES WELL, NEEDS ATTENDED AND MET, CALL LIGHT WITHIN REACH, BED LOW AND LOCKED, SIDERAILS X2 UP, WILL CONTINUE TO MONITOR.
[2017-04-03 08:00] VITALS: BP 126/79
[2017-04-03] MEDS: PANTOPRAZOLE 40 MG TABLET.DR PO SCH (08:14)
[2017-04-03] MEDS: GUAIFENESIN LA 600 MG TABLET.SA PO SCH (08:14)
[2017-04-03] MEDS: DEXAMETHASONE 1 MG TABLET PO SCH (08:14)
[2017-04-03] MEDS: DOCUSATE SODIUM 100 MG CAPSULE PO SCH (08:14)
[2017-04-03] MEDS: RIVAROXABAN 15 MG TABLET PO SCH (08:18)
[2017-04-03] MEDS ORDERED: Rivaroxaban PO (10:19)
--- NOTE | 2017-04-03 12:40 | NUR ---
IMPROVEMENT RN NOTE RECEIVED DISCHARGE ORDERS FROM DR. MEYER, DISCUSSED WITH PATIENT AND FAMILY, PATIENT ALERT AND ORIENTED, BREATHING EVEN AND UNLABORED, NO DISTRESS, TLSO IN PLACED WHEN OOB, DENIES PAIN OR DISCOMFORT AT THIS TIME, ATE LUNCH AND TOLERATED WELL, NEEDS ATTENDED AND ANTICIPATED, PATIENT AND FAMILY RECEIVED DISCHARGED INSTRUCTIONS AND VERBALIZED UNDERSTANDING, SKIN ASSESSMENT DONE, PHOTOS TAKEN YESTERDAY AND NO CHANGES NOTED, BELONGINGS RECONCILED, ALL PAPERWORKS SIGNED BY PATIENT, REPORT [facility] TO [facility]. WAITING FOR TRANSPORTATION.
--- NOTE | 2017-04-03 13:20 | NUR ---
MACROECONOMICS PROFESSOR PATIENT LEFT THE FACILITY ACCOMPANIED BY 2 TENTMAKER, LEFT FOR [facility]. NO DISTRESS NOTED.
== END 2017-04-03 13:20 | DRG 722 ==
LOC: ER 15:15 → MED 16:39 → TELE 18:20 → MED 03-20 10:37
PROVIDERS: ADMIT Internal Medicine; ATTEND Internal Medicine
PROC: 30233N1 Transfusion of Nonautologous Red Blood Cells into Peripheral Vein, Percutaneous Approach (ICD-10-PCS; principal; 2017-03-19)
PROC: 05H533Z Insertion of Infusion Device into Right Subclavian Vein, Percutaneous Approach (ICD-10-PCS; 2017-03-20)
PROC: 0DB98ZX Excision of Duodenum, Via Natural or Artificial Opening Endoscopic, Diagnostic (ICD-10-PCS; 2017-03-22)
PROC: 0DB68ZX Excision of Stomach, Via Natural or Artificial Opening Endoscopic, Diagnostic (ICD-10-PCS; 2017-03-22)
PROC: 0DB58ZX Excision of Esophagus, Via Natural or Artificial Opening Endoscopic, Diagnostic (ICD-10-PCS; 2017-03-22)
DX: C61 Malignant neoplasm of prostate (principal); K22.11 Ulcer of esophagus with bleeding; D61.818 Other pancytopenia; K26.4 Chronic or unspecified duodenal ulcer with hemorrhage; K29.71 Gastritis, unspecified, with bleeding; C79.51 Secondary malignant neoplasm of bone; D68.59 Other primary thrombophilia; M48.54XA Collapsed vertebra, not elsewhere classified, thoracic region, initial encounter for fracture; E86.0 Dehydration; I10 Essential (primary) hypertension; Z92.3 Personal history of irradiation; Z87.891 Personal history of nicotine dependence; Z87.19 Personal history of other diseases of the digestive system; Z79.01 Long term (current) use of anticoagulants; M85.80 Other specified disorders of bone density and structure, unspecified site; M77.9 Enthesopathy, unspecified; K44.9 Diaphragmatic hernia without obstruction or gangrene; M48.00 Spinal stenosis, site unspecified; M47.9 Spondylosis, unspecified
CPT/HCPCS: 36415; 36600; 71010-TC; 71250-TC; 71260-TC; 72125-TC; 72128-TC; 72131-TC; 80048-TC; 80061-TC; 80076-TC; 80202-TC; 81000-TC; 82150-TC; 82550-TC; 82553-TC; 82746; 82803-TC; 83540-TC; 83690-TC; 83735-TC; 83880; 84100-TC; 84153-TC; 84154-TC; 84443-TC; 85025-TC; 85027-TC; 85730-TC; 86850-TC; 86921-TC; 87040-TC; 87070-TC; 87081-TC; 87086-TC; 88305-TC; 88313-TC; 88342; 93307-TC; 94640-TC; 94799-TC; 97116-TC; 97530-TC; A4216; A4606; A9563; C9113; J1100; J1442; J1956; J2543; J3370; J3475; J3490; J7030; J7040; J7042; J7050; J7060; J8540; P9016-BL; Q9967; Z7610